=== PATIENT | female | born 1950 | race Caucasian/White ===

== ENCOUNTER 2023-02-04 09:40 | Emergency (ER) | payer MEDICARE, SELFPAY ==
[2023-02-04 09:43] VITALS: BP 155/83; PULSE 92; RESP 18; TEMP 36.9; O2SAT 98; BMI 23.0
[2023-02-04 09:50] VITALS: O2SAT 98
--- NOTE | 2023-02-04 09:50 | XR_ITS ---
The [address] [address] Patient Name: CHACHO TOBIAS MRN: [id number] date: 1950 Sex: F Assigned Patient Location: ER Current Patient Location: ED.MAIN Accession/Order Number: [id number] Exam Date: 02/04/2023 09:55 Report Date: 02/04/2023 11:00 At the request of: VIRGINIA JARA Procedure: XR foot LT min 3V EXAM: XR foot LT min 3V CLINICAL HISTORY: Pain post injury. COMPARISON: 03/12/2019 TECHNIQUE: X-ray FINDINGS: There is a minimal nondisplaced cortical irregularity along the distal third metatarsal shaft. The is remote hardware is in place, which appears stable. There are degenerative changes. There is a small calcaneal heel spur. The remainder of the osseous structures and joint spaces appear intact. XR/XR foot LT min 3V IMPRESSION: Possible nondisplaced hairline fracture of the distal third metatarsal shaft. Correlation with the site of point tenderness, conservative treatment and appropriate follow-up are recommended. Electronically authenticated by: CYN ALMEIDA Date: 02/04/2023 11:00
--- NOTE | 2023-02-04 09:50 | ED_ITS ---
HPI - Extremity Injury (Lower) General Chief Complaint: Extremity Injury, Lower Stated Complaint: LOWER EXTREMITY INJURY L FOOT Time Seen by Provider: 02/04/23 09:50 Mode of arrival: walk-in Limitations: no limitations History of Present Illness HPI Narrative: Patient is coming to the ER with a left foot pain that started after she dropped at dinner tray on her foot yesterday this happened to the left foot and since then the patient did apply some ice initially, she does have some swelling there that got better and she also mentioned that she does not have any significant pain when she is walking. Related Data Allergies Allergy/AdvReac Type Severity Reaction Status Date / Time No Known Drug Allergies Allergy Verified 02/04/23 09:48 Review of Systems ROS Status of ROS 10 or more systems reviewed and unremark able except as noted in history and below [facility] Social History Smoking status: Never smoker Exam Narrative Exam Narrative: Nurses notes and vital signs reviewed and patient is not hypoxic. General: Well-appearing and in no apparent distress. Skin: Warm, dry, no pallor noted. No rash. Head: Normocephalic, atraumatic. Neck: Supple, non-tender. Eye: Pupils are equal, round and EOMI. No scleral icterus. Ears, Nose, Mouth, and Throat: TM are clear, no nasal mucosal hypertrophy. Oral mucosa is moist, no posterior oropharynx erythema, uvula is mid-line Cardiovascular: Regular Rate and Rhythm without murmur, gallop or rub. Respiratory: No accessory muscle use or respiratory distress. Lungs are clear to auscultation, no wheezing, rales or rhonchi Chest Wall: no tenderness Back: No midline thoracic or lumbar vertebral tenderness. No CVA tenderness Musculoskeletal: swelling and contusion to the lateral aspect of the foot mostly towards the third fourth and the fifth metatarsal no open wounds mild tenderness on palpation, no vascular injury detected GI: Abdomen is soft, non-distended. Normal bowel sounds. No masses appreciated. No tenderness to palpation. No rebound, guarding, or rigidity noted. Neurological: A&O x4. No cranial nerve dysfunction observed. No truncal ataxia. Moves all extremities. Sensation intact. Psychiatric: Cooperative and interactive. Normal mood and affect. Constitutional Vital Signs, click to edit/add: Last Vital Signs Temp 98.5 F 02/04/23 09:43 Pulse 92 H 02/04/23 09:43 Resp 18 02/04/23 09:43 BP 155/83 H 02/04/23 09:43 Pulse Ox 98 02/04/23 09:43 O2 Del Method Room Air 02/04/23 09:43 Course Vital Signs Vital signs: Vital Signs Temperature 98.5 F 02/04/23 09:43 Pulse Rate 92 H 02/04/23 09:43 Respiratory Rate 18 02/04/23 09:43 Blood Pressure 155/83 H 02/04/23 09:43 Pulse Oximetry 98 02/04/23 09:43 Oxygen Delivery Method Room Air 02/04/23 09:43 Temperature 98.5 F 02/04/23 09:43 Pulse Rate 92 H 02/04/23 09:43 Respiratory Rate 18 02/04/23 09:43 Blood Pressure 155/83 H 02/04/23 09:43 Pulse Oximetry 98 02/04/23 09:43 Oxygen Delivery Method Room Air 02/04/23 09:43 MDM - Extremity Injury (Lower) MDM Narrative Medical decision making narrative: The patient presented with contusion of the left foot X-ray of the foot showed no acute pathology The patient was discharged home with supportive care of Keven wrap as well as Tylenol The patient is to follow up with primary care physician in next 2-3 days or to return to the emergency department should any of the signs or symptoms worsen or new symptoms develop. The patient agrees with the following Diagnosis and Treatment plan and the patient will be discharged home. Discharge Plan Discharge Chief Complaint: Extremity Injury, Lower Clinical Impression: Contusion of foot Qualifiers: Encounter type: initial encounter Laterality: left Qualified Code(s): S90.32XA - Contusion of left foot, initial encounter Metatarsal fracture Qualifiers: Encounter type: initial encounter Metatarsal bone: third Fracture type: closed Fracture alignment: nondisplaced Laterality: left Qualified Code(s): S92.335A - Nondisplaced fracture of third metatarsal bone, left foot, initial encounter for closed fracture Patient Disposition: Home, Self-Care Time of Disposition Decision: 11:17 Condition: Good Instructions: Foot Fracture in Adults (ED), Foot Contusion (ED) Stand Alone Forms: Portal Instructions Referrals: ELMA DANIELSON [Primary Care Provider] - 1 week Zach Corral DPM [Physician] - 1 week Discharge Date/Time: 02/04/23 11:32
== END 2023-02-04 11:32 | disposition home or self-care (01) ==
PROVIDERS: Emergency Provider Emergency Medicine; PCP Family Medicine
DX: S90.32XA Contusion of left foot, initial encounter (principal); W20.8XXA Other cause of strike by thrown, projected or falling object, initial encounter
CPT/HCPCS: 73630; 99283

== ENCOUNTER 2023-12-16 07:59 | Emergency (ER) | payer MEDICARE, SELFPAY ==
[2023-12-16 08:04] VITALS: BP 160/90; PULSE 96; TEMP 37.1; O2SAT 97; BMI 22.0
--- OUTSIDE RECORDS SUMMARY | 2023-12-16 08:07 | XMS_ITS | CCD ---
Author Organization [facility] Care Team Providers Care Customer Service Consultant Name Role Phone Charlene Cruz Unavailable FRANCESCO PIERRE Admitting Unavailable HIGHLANDER, FRANCESCO Attending Unavailable SEAN CALVILLO V Consulting Unavailable HIGHLANDER, FRANCESCO Consulting Unavailable MARYLOUANDER, FRANCESCO Admitting Unavailable HIGHLANDER, FRANCESCO Attending Unavailable CHARLENE CRUZ Primary Care Unavailable GABBY, FRANCESCO Admitting Unavailable GABBY, FRANCESCO Attending Unavailable ANTHONY CHARLENE A Primary Care Unavailable Anthony Charlene A Primary Care Provider Lesa Mack Unavailable DR CHARLENE CRUZ A Primary Care Unavailable ALEENA, DR GUADARRAMA Admitting Unavailable HAY, DR GUADARRAMA Attending Unavailable ZIEBSAM, DR JEREMIAH Connolly Consulting Unavailable RAS CABEZAS Consulting Unavailable Darrius Moreland Unavailable MD Charlene Cruz Primary Care Provider DO Darrius Moreland Attending Provider MD Charlene Cruz Primary Care Provider DO Darrius Moreland Attending Provider Sharmaine Alfonso Unavailable Romi Toth Unavailable CHARLENE CRUZ Referring Unavailable CHARLENE CRUZ Attending Unavailable CHARLENE CRUZ Primary Care Unavailable Charlene Cruz MD Primary Care Provider BRITT HINSON Attending Unavailable ANTHONY, CHARLENE A Primary Care Unavailable CRUZ, CHARLENE A Attending Unavailable ANTHONY, CHARLENE A Referring Unavailable CRUZ, CHARLENE A Primary Care Unavailable JESUS SALAS Attending Unavailabl e CHARLENE CRUZ A Referring Unavailable CRUZ, CHARLENE A Primary Care Unavailable ASSENMACJESUS EPSTEIN Referring Unavailabl e CRUZ, CHARLENE A Primary Care Unavailable TIFFANIEENJESUS RASHEED Referring Unavailabl e CRUZ, CHARLENE A Primary Care Unavailable JESUS SALAS Admitting Unavailabl e ASSENMACHERJESUS Attending Unavailabl e ASSENMACHERJESUS Referring Unavailabl e CRUZ, CHARLENE A Primary Care Unavailable SOHAIL KAISER Attending Unavailable ANTHONY, CHARLENE A Primary Care Unavailable ASSENMACJESUS EPSTEIN Attending Unavailabl e ASSENMACHERJESUS Referring Unavailabl e CRUZ, CHARLENE A Primary Care Unavailable ASSENMAC, JESUS Perrin Attending Unavailabl e ANTHONY, CHARLENE A Referring Unavailable ANTHONY, CHARLENE A Primary Care Unavailable ASSENMAC, JESUS Perrin Referring Unavailabl e CRUZ, CHARLENE A Primary Care Unavailable ASSENJESUS RASHEED Attending Unavailabl e ANTHONY, CHARLENE A Referring Unavailable CRUZ, CHARLENE A Primary Care Unavailable JOEL MIDDLETON Attending Unavailable CHARLENE CRUZ Referring Unavailable SHAI CRUZHER A Primary Care Unavailable MD Charlene Cruz Primary Care Provider [phone] BEBO Curran Attending Provider Charlene Cruz Primary Care Unavailable Lazara Curran Attending Unavailable Lazara Curran Admitting Unavailable Medications Current Medications Medication Drug Class(es) Dates Sig (Normalized) Sig (Original) acetaminophen 325 mg / oxyCODONE hydrochloride 5 mg oral tablet (4 sources) Opioid Agonist take 1 tablet by mouth every six hours oxyCODONE-Acetami nophen 5-325 MG 1 tablet as needed Orally every 6 hrs PRN Active acyclovir 400 mg oral tablet (2 sources) Herpesvirus Nucleoside Analog DNA Polymerase Inhibitor, Herpes Simplex Virus Nucleoside Analog DNA Polymerase Inhibitor, Herpes Zoster Virus Nucleoside Analog DNA Polymerase Inhibitor Start: 11-30-2023 Acyclovir Active MG PO November 30, 2023 12:00am azithromycin 250 mg oral tablet (1 source) Macrolide Antimicrobial Start: 03-09-2021 Zithromax 250 MG 2 tablet on the first day, then 1 tablet daily for 4 days Orally Once a day for 5 day(s) Mar, Active benzonatate 200 mg oral capsule (2 sources) Non-narcotic Antitussive Start: 11-30-2023 take 200 mg by mouth three times daily Benzonatate Active 200 MG PO Three times daily November 30, 2023 12:00am doxycycline hyclate 100 mg oral capsule (13 sources) Tetracycline-class Drug Start: 11-30-2023 take 100 mg by mouth twice daily Doxycycline Hyclate Active 100 MG PO Twice daily 14 November 30, 2023 12:00am Start: 01-27-2020 take 1 capsule by [facility] every twelve hours Doxycycline Monohydrate 100 MG 1 capsule Orally every 12 hrs for 7 days Jan, Not-Taking/PRN fluticasone propionate 0.05 mg/actuat metered dose nasal spray (13 sources) Corticosteroid Start: 01-16-2023 take 2 spray(s) nasal route once daily Fluticasone Propionate 50 MCG/ACT 2 sprays Nasally Once a day for 14 day(s) Jan, Active Start: 01-27-2020 take 1 spray(s) nasa l route once daily as needed Fluticasone Propionate 50 MCG/ACT 1 spray in each nostril Nasally Once a day for 10 days Jan, Not-Taking/PRN Start: 01-27-2020 take 1 spray(s) nasa l route once daily Fluticasone Propionate 50 MCG/ACT 1 spray in each nostril Nasally Once a day for 10 days Jan, Not-Taking 12 hr guaiFENesin 600 mg extended release oral tablet (2 sources) Start: 11-30-2023 take 600 mg by mouth twice daily Guaifenesin Active 600 MG PO Twice daily November 30, 2023 12:00am Ibuprofen (4 sources) Nonsteroidal Anti-inflammatory Drug Advil Active methylPREDNISolone 4 mg oral tablet (20 sources) Corticosteroid Start: 11-30-2023 take 1 tablet by mouth once Methylprednisolone (Medrol (Que)) 4 mg tablets,dose pack Active 0 PO per package directions November 30, 2023 12:00am PO PER PKG DIR for 6 days Start: 12-11-2022 Medrol 4 MG as directed Orally As Directed for 6 days Jan, Active Start: 04-20-2022 Medrol 4 MG as directed Orally Apr, Active Start: 01-27-2020 methylPREDNISo lone 4 MG take half with breakfast, half with dinner Orally as directed for 6 Sep, Not-Taking/PRN Naproxen (11 sources) Nonsteroidal Anti-inflammatory Drug Start: 11-30-2023 Naproxen Active MG PO November 30, 2023 12:00am Naproxen Active predniSONE 20 mg oral tablet (1 source) Start: 03-09-2021 take 1 tablet by mouth every twelve hours predniSONE 20 MG 1 tablet Orally bid for 5 day(s) Mar, Active Completed/Discontinued Medications Medication Drug Class(es) Dates Sig (Normalized) Sig (Original) amoxicillin 500 mg oral capsule (3 sources) Penicillin-class Antibacterial Start: 12-11-2022 take 1 capsule by mouth every twelve hours Amoxicillin 500 MG 1 capsule Orally every 12 hrs for 10 days Dec, Not-Taking/PRN cephalexin 500 mg oral capsule (4 sources) Cephalosporin Antibacterial Start: 10-25-2022 take 1 capsule by mouth every eight hours Cephalexin 500 MG 1 capsule Orally tid for 10 day(s) Oct, Not-Taking/PRN Problems Active Problems Problem Classification Problem Date Documented Date Episodic/Chronic Acute and chronic tonsillitis (2 sources) Amygdalolith; Translations: [Other chronic diseases of tonsils and adenoids] Onset: 04-03-2019 04-03-2019 Chronic Fracture of lower limb (4 sources) Displaced fracture of fifth metatarsal bone, right foot, initial encounter for closed fracture; Translations: [Displaced fracture of fifth metatarsal bone, right foot, subsequent encounter for fracture with routine healing] Episodic Fracture of lower limb (4 sources) Other fracture of upper end of left tibia, initial encounter for closed fracture; Translations: [Other fracture of upper end of left tibia, subsequent encounter for closed fracture with routine healing] Episodic Osteoarthritis (4 sources) Primary osteoarthritis, left ankle and foot; Translations: [Primary osteoarthritis, right ankle and foot] Onset: 12-06-2018 04-09-2023 Chronic Osteoporosis (1 source) Age-related osteoporosis without current pathological fracture; Translations: [Age-related osteoporosis without current pathological fracture] Onset: 05-31-2023 Chronic Other connective tissue disease (4 sources) Pain in right foot; Translations: [PAIN IN RIGHT FOOT] Onset: 12-02-2018 Episodic Other connective tissue disease (2 sources) Pain in left foot; Translations: [PAIN IN LEFT FOOT] Onset: 12-06-2018 Episodic Other connective tissue disease (2 sources) Posterior tibial tendinitis, right leg Episodic Other connective tissue disease (1 source) Peroneal tendinitis, left leg Episodic Other ear and sense organ disorders (1 source) Otalgia, left ear; Translations: [Otalgia, left ear] Onset: 09-17-2023 Episodic Other lower respiratory disease (2 sources) Cough; Translations: [Cough] 12-07-2023 Episodic Other lower respiratory disease (1 source) Other specified respiratory disorders; Translations: [Other diseases of respiratory system, not elsewhere classified] 11-30-2023 Episodic Other non-traumatic joint disorders (2 sources) Temporomandibular joint disorder; Translations: [Arthropathy of both temporomandibular joints] Onset: 09-20-2020 09-20-2020 Chronic Other non-traumatic joint disorders (1 source) Arthropathy; 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] Onset: 09-20-2020 Chronic Other non-traumatic joint disorders (1 source) Pain in right ankle and joints of right foot; Translations: [PAIN IN RIGHT ANKLE] Onset: 12-06-2018 Episodic Other non-traumatic joint disorders (1 source) Pain in left ankle and joints of left foot; Translations: [PAIN IN LEFT ANKLE] Onset: 12-06-2018 Episodic Other non-traumatic joint disorders (1 source) Hip pain; Translations: [Pain in left hip] 04-09-2023 Episodic Other upper respiratory infections (3 sources) Acute pharyngitis, unspecified; Translations: [Acute upper respiratory infection, unspecified] Onset: 03-09-2021 Resolved: 03-09-2021 Episodic Otitis media and related conditions (2 sources) Acute serous otitis media, left ear; Translations: [Otitis media, unspecified, left ear] Episodic Skin and subcutaneous tissue infections (1 source) Cellulitis of left finger Episodic Superficial injury; contusion (1 source) Contusion of left foot, initial encounter Episodic Unclassified (3 sources) Breast neoplasm screening status; Translations: [Encounter for screening mammogram for malignant neoplasm of breast] Onset: 12-23-2022 Episodic Unclassified (1 source) Patient encounter status; Translations: [Visit for screening mammogram] Unclassified (1 source) Post-op Onset: 07-23-2023 Unclassified (1 source) Primary osteoarthritis of left hip [M16.12] Onset: 07-10-2023 Unclassified (1 source) New Patient Onset: 04-09-2023 Unclassified (1 source) Cerumen Impaction Onset: 09-17-2023 Unclassified (1 source) Cough, unspecified; Translations: [Cough, unspecified] Onset: 11-30-2023 Past or Other Problems Problem Classification Problem Date Documented Da te Episodic/Chronic Immunizations and screening for infectious disease (1 source) Contact with and (suspected) exposure to other viral communicable diseases Onset: 03-09-2021 Resolved: 03-09-2021 Episodic Mood disorders (2 sources) Mood disorders Onset: 09-20-2020 09-20-2020 Other connective tissue disease (1 source) Foot pain Onset: 02-03-2023 Episodic Other ear and sense organ disorders (2 sources) Hearing loss of left ear; Translations: [Impacted cerumen, left ear] Onset: 12-17-2018 12-17-2018 Episodic Other ear and sense organ disorders (2 sources) Impacted cerumen; Translations: [Impacted cerumen, unspecified ear] Onset: 04-03-2019 04-03-2019 Episodic Other ear and sense organ disorders (1 source) Impacted cerumen, bilateral; Translations: [Impacted cerumen, bilateral] Onset: 04-03-2019 Episodic Other non-traumatic joint disorders (1 source) Pain in left hip; Translations: [Pain in left hip] Onset: 04-09-2023 Episodic Unclassified (1 source) Suspected COVID-19 virus infection Z20.822 Viral infection (1 source) COVID-19 Onset: 03-09-2021 Resolved: 03-09-2021 Results Test Name Value Interpretation Reference Range Facility XR chest 2V*on 11-30-2023 XR chest 2V* [facility] Main [address] [address] XRay Report Signed Patient: Chacho Bonner MR#: [id number] 38 : 1950 Acct:[id number] Age/Sex: 73 / F ADM Date: 11/30/23 Loc: XDUCLY Room: Type: [facility] Attending Dr: Lazara Curran APRN Copies to: Lazara Curran APRN Ordering Provider: Lazara Curran APRN Date of Service: 11/30/23 XR/XR chest 2V*: R05.9 - Cough, unspecified XR chest 2V* 11/30/2023 2:09 PM SIGNS AND SYMPTOMS: Cough, chest congestion PROTOCOL: Frontal and lateral radiographs of the chest COMPARISON: None FINDINGS: The trachea is midline. The heart and mediastinal structures are within normal limits. The lung parenchyma is clear. The bony thorax is intact. XR/XR chest 2V* IMPRESSION: No acute cardiopulmonary pathology. Impression dictated by: Rob Cardoso M.D.11/30/2023 2:30 PM Dictation Location: [place] [address] Transcribed By: [facility] 11/30/23 1430 Dictated By: Rob Cardoso II, MD 11/30/23 1429 Signed By: 11/30/23 1430 Normal [facility] COMPLETE BLOOD COUNTon 06-25 Erythrocyte distribution width (RBC) [Ratio] 14.0 % Normal 11.5-15.0 [facility] Comment on above: Performed By: #### CBC #### [facility] ([id number]) [facility] [place] [address] Hematocrit (Bld) [Volume fraction] 39.6 % Normal 35-47 [facility] Comment on above: Performed By: #### CBC #### [facility] ([id number]) [address] [place] [address] Hemoglobin (Bld) [Mass/Vol] 13.1 g/dL Normal 11.7-15.5 [facility] Comment on above: Performed By: #### CBC #### [facility] ([id number]) [address] [place] [address] MCH (RBC) [Entitic mass] 30.3 pg Normal 27-34 [facility] Comment on above: Performed By: #### CBC #### [facility] ([id number]) [address] [place] [address] MCHC (RBC) [Mass/Vol] 33.0 g/dL Normal 32-36 [facility] Comment on above: Performed By: #### CBC #### [facility] ([id number]) [address] [place] [address] MCV (RBC) [Entitic vol] 92 fL Normal 80-100 [facility] Comment on above: Performed By: #### CBC #### [facility] ([id number]) [address] [place] [address] Platelet mean volume (Bld) [Entitic vol] 7.9 fL Normal 7-12 [facility] Comment on above: Performed By: #### CBC #### [facility] ([id number]) [address] [place] [address] Platelets (Bld) [#/Vol] 249 10*3/uL Normal 150-450 [facility] Comment on above: Performed By: #### CBC #### [facility] ([id number]) [facility] [place] [address] RBC COUNT 4.31 X10E12/L Normal 3.80-5.20 [facility] Comment on above: Performed By: #### CBC #### [facility] ([id number]) [employer] [place] [address] WBC (Bld) [#/Vol] 7.6 10*3/uL Normal 4.0-11.0 [facility] Comment on above: Performed By: #### CBC #### [facility] ([id number]) [employer] [place] [address] DEXA SCAN CENTRAL SKELETALon 05-31-2023 DEXA SCAN CENTRAL SKELETAL DEXA SCAN CENTRAL SKELETAL Comparison October 01, 2019 History:Postmenopausal, screening for osteoporosis, estrogen deficient and at clinical risk for osteoporosis Procedure: Bone density scan was performed in the regions indicated in the accompanying documents. Bone mineral density values for each site expressed in grams per square centimeter and shown on accompanying graphs and tables. These values are compared to the World Health Organization standards that state that bone mineral density values at or below -2.5 standard deviations (T score -2.5) standard deviations from a young adult ethnicity-matched population are indicative of osteoporosis, and bone mineral density values at or below -1.0 standard deviations (T score -1.0) from a young adult ethnicity-matched population are indicative of osteopenia. The comparison of this patient's values to the world health organization standards is given in the impression. When possible, this study has been compared to any prior DEXA study. Impression: 1. Osteoporosis Bilateral hips and lumbar spine Findings are worsening with left femoral neck T score of -3.1 and major osteoporotic fracture risk for 1.5% and hips fracture risk and 17.6% The current national osteoporosis Foundation guide recommend treating patients with FRAX 10 year risk scores of greater than or equal to 3% for hip fracture, or greater than or equal to 20% or major osteoporotic fracture to reduce their fracture risk. Recommendations for treatment: In any patient found to be at risk for fracture may be helped by medical treatment. Also, exercise and a diet rich in calcium and vitamin D has been shown to help in the prevention of bone loss and should be considered as an adjunct to treatment. In postmenopausal patients, this might also include medical therapy. Consistent with [employer] Medicare guidelines, patients at risk may be eligible for vertebral fracture assessment exam. Recommendations for followup: Patients diagnosed as at risk for fracture should have regular bone mineral density tests. For patient's eligible for Medicare, routine testing is allowed once every 2 years. The testing frequency to be increased to one year for patients with rapidly progressive disease, those whom are receiving or discontinuing medical therapy to restore bone mass, or have additional risk factors. Finalized by Jung Ceballos MD on 05/31/2023 5:23 PM Normal [facility] XR Hip - left Single viewon 04-09-2023 AP left hip x-ray obtained in the office today for digital templating demonstrates end-stage primary osteoarthritis with [id number] change in the femoral acetabular joint significant cystic change in the subchondral bone. Left hip end-stage primary osteoarthritis MANUALLY TRANSCRIBED RESULTS Radiology Study observation (narrative) [employer] [facility] XR Hip - left Single viewOrd ered By: Jesus Salas on 04-09-2023 [facility] Work Phone: COVID + FLU Quick Testingon 01-16-2023 SARS-CoV-2 (COVID-19) RNA LUZ MARINA+probe Ql (Unsp spec) Negative [employer] Other COVID + FLU Quick Testing Negative [employer] Other MM SCREENING AMAURY BILATERALo n 12-23-2022 MM SCREENING AMAURY BILATERAL EXAMINATION: BILATERAL DIGITAL SCREENING MAMMOGRAM WITH TOMOSYNTHESIS INDICATION: Annual screening exam. Family history of breast cancer in her mother. COMPARISON: 2021, 2020, 2019, 2018 TECHNIQUE: Standard mammographic views, 2D and 3D. Computer-aided detection was utilized in the interpretation of this exam. FINDINGS: Scattered fibroglandular breast tissue. Stable benign focal asymmetry in the outer posterior left breast. A linear scar marker was placed over the lower inner left breast to demarcate the site of prior benign excisional biopsy. No suspicious masses, calcifications, or other abnormalities in either breast. No significant interval change. IMPRESSION: No mammographic evidence of malignancy. BIRADS: BIRADS - CATEGORY 2 Benign, no evidence of malignancy. Normal interval follow-up is recommended in 12 months. OVERALL ASSESSMENT - BENIGN A letter of notification will be sent to the patient regarding the results. [facility], along with the National [employer] Cancer Network, the [employer], and [facility], recommend annual screening mammograms for women age 40 and older. Workstation ID: [id number] Dictated by: CHRISTIE HANKS on SunDec 25, 2022 4:14:41 PM EST Transcribed by: CHRISTIE HANKS on SunDec 25, 2022 4:14:41 PM EST Finalized by: CHRISTIE HANKS on SunDec 25, 2022 4:14:41 PM EST Normal [facility] XR foot RT min 3V*on 023 XR foot RT min 3V* [facility] [employer] Other XR foot RT min 3V* [facility] [place] [employer] Other XR foot RT min 3V* [address] [place] [address] [employer] Other XR foot RT min 3V* [place] [address] [employer] Other XR foot RT min 3V* XRay Report [employer] Other XR foot RT min 3V* Signed [employer] Other XR foot RT min 3V* Patient: Chacho Bonner MR#: [id number] [employer] Other XR foot RT min 3V* 38 [employer] Other XR foot RT min 3V* : 1950 Acct:[id number] [employer] Other XR foot RT min 3V* Age/Sex: 71 / F ADM Date: 04/05/22 [employer] Other XR foot RT min 3V* Loc: [facility] Room: Type: [facility] [employer] Other XR foot RT min 3V* Attending Dr: Darrius Moreland DO [employer] Other XR foot RT min 3V* Copies to: Darrius Moreland DO [employer] Other XR foot RT min 3V* Ordering Provider: Darrius Moreland DO [employer] Other XR foot RT min 3V* Date of Service: 04/05/22 [employer] Other XR foot RT min 3V* XR/XR knee LT 2V: Other closed fracture of proximal end of left tibia [employer] Other XR foot RT min 3V* with [employer] Other XR foot RT min 3V* ([id number]) XR/XR foot RT min 3V*: Other closed fracture of proximal end of left tibia with [employer] Other XR foot RT min 3V* LEFT KNEE - 2 views right foot 3 views [employer] Other XR foot RT min 3V* CLINICAL HISTORY: Follow-up left proximal tibial fracture. Follow-up right fifth metatarsal fracture [employer] Other XR foot RT min 3V* COMPARISON: Left knee and right foot 03/08/2022 [employer] Other XR foot RT min 3V* FINDINGS: [employer] Other XR foot RT min 3V* Left knee: [employer] Other XR foot RT min 3V* Interval sclerosis and callus formation involving the proximal fibular fracture consistent with [employer] Other XR foot RT min 3V* healing response. No change in alignment. Degenerative changes involving the left knee joint. No [employer] Other XR foot RT min 3V* knee joint effusion. [employer] Other XR foot RT min 3V* Right foot: Fifth metatarsal fracture grossly unchanged alignment and healing compared to the prior [employer] Other XR foot RT min 3V* study. No additional fractures are seen. Degenerative changes involving the first MTP joint without [employer] Other XR foot RT min 3V* bony erosion. Plantar spurring. [employer] Other XR foot RT min 3V* XR/XR knee LT 2V [employer] Other XR foot RT min 3V* IMPRESSION: [employer] Other XR foot RT min 3V* HEALING PROXIMAL FIBULAR FRACTURE. [employer] Other XR foot RT min 3V* NO SIGNIFICANT CHANGE IN RIGHT FIFTH METATARSAL FRACTURE FINDINGS. [employer] Other XR foot RT min 3V* Impression dictated by: Jesus Fu Jr. DMartha04/05/2022 4:51 PM [employer] Other XR foot RT min 3V* Dictation Location: [place] [address] [employer] Other XR foot RT min 3V* Transcribed By: PARVEEN 04/05/22 8280 [employer] Other XR foot RT min 3V* Dictated By: Jesus Fu Jr, DO 04/05/22 1645 [employer] Other XR foot RT min 3V* Signed By: [employer] Other XR foot RT min 3V* 04/05/22 1651 [employer] Other XR foot RT min 3V*on 023 XR foot RT min 3V* [facility] [employer] Other XR foot RT min 3V* [facility] [employer] Other XR foot RT min 3V* [address] [place] [address] [employer] Other XR foot RT min 3V* [place] [address] [employer] Other XR foot RT min 3V* XRay Report [employer] Other XR foot RT min 3V* Signed [employer] Other XR foot RT min 3V* Patient: Chacho Bonner MR#: [id number] [employer] Other XR foot RT min 3V* : 1950 Acct:[id number] [employer] Other XR foot RT min 3V* Age/Sex: 71 / F ADM Date: 03/08/22 [employer] Other XR foot RT min 3V* Loc: [facility] Room: Type: [facility] [employer] Other XR foot RT min 3V* Attending Dr: Darrius Moreland DO [employer] Other XR foot RT min 3V* Copies to: Darrius Moreland DO [employer] Other XR foot RT min 3V* Ordering Provider: Darrius Moreland DO [employer] Other XR foot RT min 3V* Date of Service: 03/08/22 [employer] Other XR foot RT min 3V* XR/XR foot RT min 3V*: Other closed fracture of proximal end of left [employer] Other XR foot RT min 3V* tibia with rou [employer] Other XR foot RT min 3V* 3 viewsRIGHT foot plain film [employer] Other XR foot RT min 3V* COMPARISON:02/07/22 [employer] Other XR foot RT min 3V* HISTORY:Status post RIGHT 5th metatarsal fracture [employer] Other XR foot RT min 3V* Continued healing of the 5th metatarsal fracture identified. Bony alignment unchanged. [employer] Other XR foot RT min 3V* XR/XR foot RT min 3V* [employer] Other XR foot RT min 3V* IMPRESSION:Healing fracture [employer] Other XR foot RT min 3V* Impression dictated by: Stanley Borja M.D.03/08/2022 1:52 PM [employer] Other XR foot RT min 3V* Dictation Location: [place] [address] [employer] Other XR foot RT min 3V* Transcribed By: PARVEEN 03/08/22 [facility] [employer] Other XR foot RT min 3V* Dictated By: Stanley Borja DO 03/08/22 [facility] [employer] Other XR foot RT min 3V* Signed By: [employer] Other XR foot RT min 3V* 03/08/22 [facility] [employer] Other XR knee LT 2Von 03-08-2022 XR knee LT 2V XR/XR knee LT 2V: Other closed fracture of proximal end of left tibia [employer] Other XR knee LT 2V with rou [employer] Other XR knee LT 2V [address] ain film [employer] Other XR knee LT 2V HISTORY:Status post LEFT proximal fibular fracture [employer] Other XR knee LT 2V Continued healing of the proximal fibular fracture identified. Bony alignment unchanged.No joint [employer] Other XR knee LT 2V effusion identified. [employer] Other XR knee LT 2V XR/XR knee LT 2V [employer] Other XR knee LT 2V IMPRESSION:Healing fracture. [employer] Other XR knee LT 2V Impression dictated by: Stanley Borja M.D.03/08/2022 1:54 PM [employer] Other XR knee LT 2V Transcribed By: PWS 03/08/22 [facility] [employer] Other XR knee LT 2V Dictated By: Stanley Borja DO 03/08/22 [facility] [employer] Other XR knee LT 2V 03/08/22 [facility] [employer] [facility] [employer] Other XR ANKLE MARVIN MIN 3 VIEWSon 1 XR ANKLE MARVIN MIN 3 VIEWS Patient: CHACHO BONNER Exam Date: 12/02/2018 : 1950 Gender:F Ordering : DR. FRANCESCO PIERRE D.P.MBrenda Admission #: [id number] Family : Order #: [id number] CLICK HERE TO VIEW EXAM RADIOLOGY REPORT PROCEDURE: RADIOGRAPH ANKLE BILATERAL MIN 3 VIEWS COMPARISON: XR ANKLE LT MIN 3 V, 09/28/2017. INDICATIONS: Chronic bilateral ankle pain, subsequent for left, initial for right RIGHT FINDINGS: BONES: No acute fracture or dislocation. Flattening of the plantar arch. Enthesopathic spurring of the calcaneus SOFT TISSUES: Negative. No visible soft tissue swelling. EFFUSION: None visible. OTHER: Negative. LEFT FINDINGS: BONES: No acute fracture or dislocation. Flattening of the plantar arch. Enthesopathic spurring of the calcaneus SOFT TISSUES: Negative. No visible soft tissue swelling EFFUSION: None visible. OTHER: Negative. RIGHT CONCLUSION: Mild osteoarthritis LEFT CONCLUSION: Mild osteoarthritis Dictated by: Sean Calvillo M.D. on 12/02/2018 at 15:03 Approved by: Sean Calvillo M.D. on 12/02/2018 at 15:05 [facility] XR FOOT MARVIN MIN 3 VIEWSon Bilirubin [Mass/Vol] Patient: CHACHO BONNER Exam Date: 12/02/2018 : 1950 Gender:F Ordering : DR. FRANCESCO PIERRE D.P.M. Admission #: [id number] Family : Order #: [id number] CLICK HERE TO VIEW EXAM RADIOLOGY REPORT PROCEDURE: RADIOGRAPH FOOT BILATERAL MIN 3 VIEWS COMPARISON: XR FOOT LT MIN 3 VIEWS, 09/28/2017. INDICATIONS: Chronic bilateral foot pain, subsequent imaging for left, initial for right RIGHT FINDINGS: BONES: No acute fracture or dislocation. Cwow-qj-xnxa articulation of the 1st metatarsophalangeal joint. Enthesopathic spurring of the calcaneus SOFT TISSUES: Negative. No visible soft tissue swelling. OTHER: Negative. LEFT FINDINGS: BONES: No acute fracture or dislocation. Eqzn-bf-kwop articulation with remodeling 1st metatarsophalangeal joint. Enthesopathic spurring of the calcaneus. Mixed lytic and sclerotic changes of the midfoot likely related to degenerative change SOFT TISSUES: Negative. No visible soft tissue swelling OTHER: Negative. RIGHT CONCLUSION: Osteoarthritis most significant at the 1st metatarsophalangeal joint LEFT CONCLUSION: Osteoarthritis most significant at the 1st metatarsophalangeal joint and midfoot Dictated by: Sean Calvillo M.D. on 12/02/2018 at 15:05 Approved by: Sean Calvillo M.D. on 12/02/2018 at 15:09 Normal [facility] CT Pelvis w/o Contraston CT Pelvis WO contrast EXAMINATION TYPE: CT Pelvis w/o Contrast DATE OF EXAM : 11/03/2018 12:02 PM HISTORY: Trauma, status post a fall. The patient is now unable to ambulate. COMPARISON: NONE FINDINGS: The examination shows no evidence of fracture, dislocation, joint effusion or hemorrhage in the region of the right hip. The bony pelvis is intact. The sacral arches and sacroiliac joints are intact. There is advanced degenerative joint disease in the left hip with multiple subchondral cysts and subchondral eburnation. IMPRESSION: No evidence of acute abnormality in the right hip or pelvis. [facility] thanks you for the opportunity to care for your patient. Workstation ID: [id number] FINAL REPORT Dictated By: Jefferson Thompson MD 11/03/2018 12:16 Assigned Physician: Jefferson Thompson MD Reviewed and Electronically Signed By: Jefferson Thompson MD 11/03/2018 12:19 Transcribed by: HUBERT 11/03/2018 12:16 Technologist: KARL Camarena [facility] ED [facility] 11-03-2018 [place] [address] Emergency Department Discharge Instructions CHACHO BONNER, Please provide this information to your Primary Care/Specialist Name: LEXPATRICE GARYANNE Current Date : 11/03/2018 13:14:37 : 1950 Primary Care Physician: PB Javier Unknown Diagnosis : Follow-Up Instructions: Felisha BONNER been given these follow-up instructions: FOLLOW-UP APPOINTMENTS: Provider: Specialty: Address: Date: PCP Unknown Physician Family Practice Follow-up as needed Provider: Specialty: Address: Date: Return to Emergency Department 1 to 2 days Comment: Follow-up as needed IF YOU WORSEN COME BACK Provider: Specialty: Address: Date: Your orthopedist 3 to 4 days Comment: Call for an Appointment Laboratory Orders: None Ordered Radiology Orders: Name: Status: XR Hip 2-[address] Pelvis w/o Contrast Completed Diagnostic Tests: None Ordered Procedure(s) and Patient Education(s) : Work Release 3 days no restrictions - CO-GC (Custom); Hip Pain EMERGENCY SERVICES MEDICATION LIST Lista de Medicaciones de los Servicios de Emergencia Name CHACHO BONNER MRN [facility]-[id number] [facility]# [id number] PLEASE READ THE FOLLOWING REGARDING YOUR MEDICATIONS Based on the information available during your visit we have given you the medication instructions below. Continue taking medications you took prior to your visit unless you have been told to change. Please share this information with your own doctor. Carry a list of your medications with you in case of an emergency. Update it when medications are stopped, doses are changed, or new medications (including iruv-sxb-larzyun products) are added. If you have any questions, check with your doctor. Por la informaci??n disponible chapis thompson visita, las instrucciones de medicaci??n aparecen debajo. Favor de continuar tomando las medicaciones Ud. satya?? antes de thompson visita por lo menos que hay cambios. Favor de compartir esta informaci??n con thompson medico. Lleva alexia lista de medicaciones consigo por mauri de emergenc??a. Actualiza la lista cuando Ud. jose antonio de jaylene las medicaciones, si cambian las dosis, o si hay nuevas medicaciones a??adidas (incluyendo medicaciones vendidas sin prescripci??n). Favor de preguntar a thompson medico por cualquier kole. THESE ARE THE MEDICATIONS YOU SHOULD BE TAKING naproxen (naproxen 250 mg oral tablet) 1 Tab(s) By Mouth Twice a day for 5 Days. Refills: 0. MEDICATIONS GIVEN DURING MEDICAL VISIT naproxen 500 mg last dose given on 11/03/2018 at 11:47 Route: By Mouth NON-MEDICATION PRESCRIPTION SCHEDULING PHONE NUMBER: MEDICATION CHANGE DETAILS (Not your Final Home Medication List) During the course of your visit, your home medication list was updated with the most current information. The details of those changes are shown below: NEW MEDICATIONS Printed Prescriptions naproxen (naproxen 250 mg oral tablet) 1 Tab(s) By Mouth Twice a day for 5 Days. Refills: 0. Comment __ UPDATED MEDICATIONS None UNCHANGED MEDICATIONS None STOP TAKING THESE MEDICATIONS None DO NOT TAKE UNTIL YOU TALK TO YOUR DOCTOR None [facility] [address] [id number] Emergency Department Discharge Instructions Name: CHACHO BONNER Current Date: 11/03/2018 13:14:37 :1950 nbs; Primary Physician: Physician, PCP Unknown We would like to thank you for choosing [facility] for your emergency medical needs. We examined and treated you today on an emergency basis only. This was not a substitute for, or an effort to provide, complete medical care. In most cases, you must let your doctor (or the doctor we referred you to) check you again. Tell your doctor about any new or lasting problems. We cannot recognize and treat all injuries or illnesses in one emergency department visit. After you leave, you should follow the directions attached. When arranging for follow-up care with your physician/referral identify yourself as being seen in the emergency department. Instructions for obtaining X-rays: When following up with your doctor, you may need to take copies of your x-rays that were done in the Emergency Department. If you didn't receive these upon your discharge from the emergency department, please call . When the final report becomes available and it is reviewed, the emergency department will attempt to contact you if there are any changes in your instructions. It is important that you leave accurate information with us on how to contact you. IF you cannot be contacted, YOU must contact the follow-up doctor that you were assigned to make sure that the final official x-ray report does not require a change in your treatment. Instructions for obtaining medical records: If you need a copy of your medical records for follow-up, please contact the Health Information Management Department at . Their office hoursare 8 AM- 4:30 PM, Sunday through Sunday. Please note: Results are not immediately available. Please allow a minimum of 36 hours for documentation and results. If you were prescribed an antibiotic: Antibiotics are life-saving drugs and they need to be used properly. Your team might change your antibiotic because test results show that a different antibiotic would be better to treat your infection. Like all medications, antibiotics have side effects. Some can be serious. This includes the risk of getting an antibiotic-resistant infection later, which may be difficult to treat. Remember to take your antibiotics as prescribed. If you have any questions please talk to your healthcare team. Seatbelts: There is no doubt that seatbelts save lives. Everyday, people without seatbelts have more serious injuries. Have everyone buckle up, using age appropriate seatbelts or car seats, to reduce their risk of injury. Smoking: If you do smoke, we encourage you to stop. Smoking affects all aspects of your health and the health of those around you. Call the [employer] at 4-054-TGYX-USA or the [employer] at 5-983-KRS-8222 for more information. High blood pressure: Your screening blood pressure today was 139 mm Hg / 67 mm Hg. Hypertension (high blood pressure) is blood pressure over 120/80. People with hypertension should contact their primary care provider within 30 days to follow up. Check your patient portal for additional blood pressure information. Immunizations: Immunization is a way to protect against deadly infections. Discuss this with your child's calender feeder, or Public Health Department. Your family practice doctor can determine if you need pneumonia or flu vaccine. [facility] can be reached at . Substance Abuse Program: Concerns with addiction to alcohol, benzodiazepines (Ativan or Xanax) and Opiates (Heroin, Percocet, OxyContin, Methadone or Fentanyl)? [facility] offers an inpatient Substance Abuse Program to help treat the symptoms associated with medical detoxification of addictive substances. The new program offers care for non- adults (18 and older) looking to break the chain to addictive chemicals. The Substance Abuse Program is a voluntary inpatient admission and it starts with a pre-screening phone call to a transition social worker. During the call, goals and objectives for recovery and how the patient will transition to outpatient care will be established. Please call [phone] to get help today. Domestic Violence: If you are a victim of domestic violence (physical, verbal, or emotional), you are not alone. Discuss this with your physician or a friend and call Choices Hotline ( for assistance and support. You are the most important factor in your recovery. Follow the provided instructions carefully. Take your medications as prescribed. Most importantly, see a doctor again as discussed. If you have problems that we have not discussed, call or visit your doctor right away. If you do not have a primary care physician, we have provided one for you to follow up with. When you call for an appointment, please inform them that you were seen in the emergency department and the date of your visit. If you are unable to reach your doctor and are still experiencing problems, return to the emergency department. For assistance finding a primary care physician, call the Physician Referral Line at . Suicide Hotline: Your mental and emotional well-being is important. If you are in a mental health crisis or are having thoughts of suicide, please call the nationwide suicide hotline, anytime day or night, at 9-750-075-THOW. Pharmacy Information: Below is a list of 24 hour pharmacies that we are aware of. We suggest that you call the specific pharmacy for their hours before traveling to a location. Hours may vary on holidays. [facility] [address] [phone] [address] [place], [place] [address] [phone] [address] [place], [place] [address] [phone] [address] [place], [place] [phone] [address] [place], [place] [phone] [address] [place], [place] [phone] [address] [place], [place] [phone] Take all medications as directed. If you need prescription assistance, contact the following agencies: ?? Partnership for Prescription Assistance at or www.pparx.org ?? [place] at or www.Validusbestrx.org ?? www.[employer] T[employer].com is a site with many valuable coupons Patient Education Materials CHACHO BONNER has been given the following patient education materials: [address] [address] Name: CHACHO BONNER : 1950 Current Date: 11/03/2018 13:14:36 Primary Care Provider Name: Physician, PCP Unknown, Physician Phone: Patient Education Materials CHACHO BONNER has been given the following patient education materials: [facility] Emergency Department [address] [place], [place] [address] Work Release Form This notice verifies that your employee Chacho Bonner was seen in this facility on 11/03/18. Excused from work for 3 days The following restrictions: None: NOTE: If symptoms continue and the employee is unable to perform the full duties of their job by this date, please advise the employee to return to this facility or make an appointment with the referral physician for further evaluation. Caitlin Olsen PAC ED Physician/Provider Musculoskeletal Hip Pain Your hip is the joint between your upper legs and your lower pelvis. The bones, cartilage, tendons, and muscles of your hip joint perform a lot of work each day supporting your body weight and allowing you to move around. Hip pain can range from a minor ache to severe pain in one or both of your hips. Pain may be felt on the inside of the hip joint near the groin, or the outside near the buttocks and upper thigh. You may have swelling or stiffness as well. HOME CARE INSTRUCTIONS ???Take medicines only as directed by your health care provider. ???Apply ice to the injured area: ???Put ice in a plastic bag. ???Place a towel between your skin and the bag. ???Leave the ice on for 15?20 minutes at a time, 3?4 times a day. ???Keep your leg raised (elevated) when possible to lessen swelling. ???Avoid activities that cause pain. ???Follow specific exercises as directed by your health care provider. ???Sleep with a pillow between your legs on your most comfortable side. ???Record how often you have hip pain, the location of the pain, and what it feels like. SEEK MEDICAL CARE IF: ???You are unable to put weight on your leg. ???Your hip is red or swollen or very tender to touch. ???Your pain or swelling continues or worsens after 1 week. ???You have increasing difficulty walking. ???You have a fever. SEEK IMMEDIATE MEDICAL CARE IF: ???You have fallen. ???You have a sudden increase in pain and swelling in your hip. MAKE SURE YOU: ???Understand these instructions. ???Will watch your condition. ???Will get help right away if you are not doing well or get worse. This information is not intended to replace advice given to you by your health care provider. Make sure you discuss any questions you have with your health care provider. Document Released: 07/12/2010 Document Revised: 02/12/2015 Document Reviewed: 09/18/2013 Elsevier Interactive Patient Education ?2015 [employer]. Patient Signature Responsible Libertarian Relationship to Patient Clinician Signature Date ><><><><><><><><><><><> <><><><><><><><><><><> Patient Visit Summary Signature CHACHO BONNER has been given the following list of patient education materials, prescriptions and follow-up instructions: MICHELINE Ryan JEANNE, have received the above patient education materials/instructions and have verbalized understanding: Date Time Patient Signature Date Time Provider Signature Normal [facility] XR Hip 2-3 Views RTon 2018 XR Hip 2-3 Views RT EXAMINATION TYPE: XR Hip 2-3 Views RT DATE OF EXAM : 11/03/2018 10:13 AM HISTORY: Pain w Trauma, pain level = 10/10 after a fall one month ago, COMPARISON: None FINDINGS: There is a hip prosthesis on the right. No fracture or dislocation. Severe arthritic changes in the superior left hip joint space. Multilevel degenerative changes in lumbar spine. No pelvic bone fracture. IMPRESSION: No acute abnormality [facility] thanks you for the opportunity to care for your patient. Workstation ID: [id number] - [id number] FINAL REPORT Dictated By: Arron Brooks MD 11/03/2018 10:19 Assigned Physician: Arron Brooks MD Reviewed and Electronically Signed By: Arron Brooks MD 11/03/2018 10:22 Transcribed by: HUBERT 11/03/2018 10:19 Technologist: MANUEL Normal [facility] Mammography Screening Amaury B ilateralon 08-29-2017 Mammography Screening Amaury Bilateral Stable mammographic appearance without evidence of malignancy. Category 1 - Negative, no evidence of malignancy. Normal interval follow-up is recommended in 12 months. OVERALL ASSESSMENT - NEGATIVE A letter of notification will be sent to the patient regarding the results. [facility], along with the National Comprehensive Cancer Network, the [employer], and [facility], recommend annual screening mammograms for women age 40 and older. KFG/duran Workstation ID: [id number] Invalid Interpretation Code FUJI SYNAPSE [facility] Mammography Screening Amaury Bilateral EXAMINATION: MM SCREENING AMAURY BILATERAL HISTORY: Annual screening. Family history of breast cancer in mother, diagnosed at age 57. Prior benign excisional biopsy in the left breast. TECHNIQUE: Computer-aided detection was utilized in the interpretation of this exam. COMPARISON: 09/02/2016, 08/14/2015, 08/29/2014. FINDINGS: 2D standard and 3D tomosynthesis combination imaging performed. Scattered fibroglandular elements are present. Surface marker placed 9 o'clock left breast to indicate site of a prior benign surgical excision. No new mass, suspicious calcifications, or areas of architectural distortion are seen bilaterally. Invalid Interpretation Code [facility] Vital Signs Date Time Vital Sign Value Performing Clinician Faci lity 12-07-2023 09:05-0400 Body height 162.56 cm MD Charlene Cruz Work Phone: [facility] 12-07-2023 09:05-0400 Body mass index (BMI) [Ratio] 22.8 kg/m2 MD Charlene Cruz Work Phone: [facility] 12-07-2023 09:05-0400 Body temperature 97.1 [degF] MD Charlene Cruz Work Phone: [facility] 12-07-2023 09:05-0400 Body weight 60.55 kg MD Charlene Cruz Work Phone: [facility] 12-07-2023 09:05-0400 Diastolic blood pressure 88 mm[Hg] MD Charlene Cruz Work Phone: [facility] 12-07-2023 09:05-0400 Heart rate 80 /min MD Charlene Cruz Work Phone: [facility] 12-07-2023 09:05-0400 Respiratory rate 18 /min MD Charlene Cruz Work Phone: [facility] 12-07-2023 09:05-0400 SaO2% (BldA) [Mass fraction] 97 % MD Charlene Cruz Work Phone: [facility] 12-07-2023 09:05-0400 Systolic blood pressure 155 mm[Hg] MD Charlene Cruz Work Phone: [facility] 11-30-2023 13:41-0400 Body height 162.56 cm MD Charlene Cruz Work Phone: [facility] 11-30-2023 13:41-0400 Body mass index (BMI) [Ratio] 23.6 kg/m2 MD Charlene Cruz Work Phone: [facility] 11-30-2023 13:41-0400 Body temperature 98 [degF] MD Charlene Cruz Work Phone: [facility] 11-30-2023 13:41-0400 Body weight 62.59 kg MD Charlene Cruz Work Phone: [facility] 11-30-2023 13:41-0400 Diastolic blood pressure 72 mm[Hg] MD Charlene Cruz Work Phone: [facility] 11-30-2023 13:41-0400 Heart rate 89 /min MD Charlene Cruz Work Phone: [facility] 11-30-2023 13:41-0400 Respiratory rate 18 /min MD Charlene Cruz Work Phone: [facility] 11-30-2023 13:41-0400 SaO2% (BldA) [Mass fraction] 95 % MD Charlnee Cruz Work Phone: [facility] 11-30-2023 13:41-0400 Systolic blood pressure 126 mm[Hg] MD Charlene Cruz Work Phone: [facility] 04-09-2023 13:09-0500 Body height 162.6 cm Jesus Salas MD Work Phone: [facility] 04-09-2023 13:09-0500 Body mass index (BMI) [Ratio] 23.52 kg/m2 Jesus Salas MD Work Phone: [facility] 04-09-2023 13:09-0500 Body weight 62.14 kg Jesus Salas MD Work Phone: [facility] [employer] [facility] 01-16-2023 13:50-0500 Body height 162.56 cm Lesa Mack Other [employer] Other 01-16-2023 13:50-0500 Body mass index (BMI) [Ratio] 24.13 kg/m2 Lesa Mack Other [employer] Other 01-16-2023 13:50-0500 Body temperature 98 [degF] Lesa Mack Other [employer] Other 01-16-2023 13:50-0500 Body weight 63.78 kg Lesa Mack Other [employer] Other 01-16-2023 13:50-0500 Diastolic blood pressure 69 mm[Hg] Lesa Mack Other [employer] Other 01-16-2023 13:50-0500 Respiratory rate 18 /min Lesa Mack Other [employer] Other 01-16-2023 13:50-0500 SaO2% (BldA) [Mass fraction] 96 % Lesa Mack Other [employer] Other 01-16-2023 13:50-0500 Systolic blood pressure 140 mm[Hg] Lesa Mack Other [employer] Other 12-11-2022 16:00-0500 Body height 162.56 cm Romi Toth Other [employer] Other 12-11-2022 16:00-0500 Body mass index (BMI) [Ratio] 23.86 kg/m2 Romi Toth Other [employer] Other 12-11-2022 16:00-0500 Body temperature 97.6 [degF] Romi Curryarney Other [employer] Other 12-11-2022 16:00-0500 Body weight 63.05 kg Romi Mendiolaney Other [employer] Other 12-11-2022 16:00-0500 Diastolic blood pressure 83 mm[Hg] Romi Curryarney Other [employer] Other 12-11-2022 16:00-0500 Respiratory rate 18 /min Romi Curryarney Other [employer] Other 12-11-2022 16:00-0500 SaO2% (BldA) [Mass fraction] 98 % Romi Curryarney Other [employer] Other 12-11-2022 16:00-0500 Systolic blood pressure 153 mm[Hg] Romi Curryarney Other [employer] Other 10-25-2022 15:50-0400 Body height 162.56 cm Lesa Martina Other [employer] Other 10-25-2022 15:50-0400 Body mass index (BMI) [Ratio] 33.47 kg/m2 Lesa Martina Other [employer] Other 10-25-2022 15:50-0400 Body temperature 98.9 [degF] Lesa Martina Other [employer] Other 10-25-2022 15:50-0400 Body weight 88.45 kg Lesa Martina Other [employer] Other 10-25-2022 15:50-0400 Diastolic blood pressure 71 mm[Hg] Lesa Mack Other [employer] Other 10-25-2022 15:50-0400 Respiratory rate 18 /min Lesa Mack Other [employer] Other 10-25-2022 15:50-0400 SaO2% (BldA) [Mass fraction] 98 % Lesa Mack Other [employer] Other 10-25-2022 15:50-0400 Systolic blood pressure 151 mm[Hg] Lesa Mack Other [employer] Other 10-01-2022 09:00-0400 Body height 162.56 cm Sharmaine Alfonso Other [employer] Other 10-01-2022 09:00-0400 Body mass index (BMI) [Ratio] 30.86 kg/m2 Sharmaine Alfonso Other [employer] Other 10-01-2022 09:00-0400 Body temperature 98.2 [degF] Sharmaine Alfonso Other [employer] Other 10-01-2022 09:00-0400 Body weight 81.56 kg Sharmaine Alfonso Other [employer] Other 10-01-2022 09:00-0400 Diastolic blood pressure 72 mm[Hg] Sharmaine Alfonso Other [employer] Other 10-01-2022 09:00-0400 Respiratory rate 18 /min Sharmaine Alfonso Other [employer] Other 10-01-2022 09:00-0400 SaO2% (BldA) [Mass fraction] 98 % Sharmaine Alfonso Other [employer] Other 10-01-2022 09:00-0400 Systolic blood pressure 142 mm[Hg] Sharmaine Alfonso Other [employer] Other 05-29-2022 15:45-0400 Body height 162.56 cm Darrius Moreland Other [employer] Other 05-29-2022 15:45-0400 Body mass index (BMI) [Ratio] 34.84 kg/m2 Darrius Merly Other [employer] Other 05-29-2022 15:45-0400 Body weight 92.08 kg Darrius Allenley Other [employer] Other 04-05-2022 14:15-0500 Body height 162.56 cm Darrius Merly Other [employer] Other 04-05-2022 14:15-0500 Body mass index (BMI) [Ratio] 24.54 kg/m2 Darrius Merly Other [employer] Other 04-05-2022 14:15-0500 Body weight 64.86 kg Darrius Merly Other [employer] Other 02-10-2022 09:30-0500 Body height 162.56 cm Darrius Merly Other [employer] Other 02-10-2022 09:30-0500 Body mass index (BMI) [Ratio] 24.54 kg/m2 Darrius Merly Other [employer] Other 02-10-2022 09:30-0500 Body weight 64.86 kg Darrius Moreland Other [employer] Other 03-09-2021 11:15-0500 Body height 162.56 cm Lesa Mack Other [employer] Other 03-09-2021 11:15-0500 Body mass index (BMI) [Ratio] 23.69 kg/m2 Lesa Mack Other [employer] Other 03-09-2021 11:15-0500 Body temperature 98.1 [degF] Lesa Mack Other [employer] Other 03-09-2021 11:15-0500 Body weight 62.6 kg Lesa Mack Other [employer] Other 03-09-2021 11:15-0500 Respiratory rate 18 /min Lesa Mack Other [employer] Other 03-09-2021 11:15-0500 SaO2% (BldA) [Mass fraction] 98 % Lesa Mack Other [employer] Other Encounters Encounter Date Encounter Type Care Provider Facility Start: 12-07-2023 End: 12-07-2023 ambulatory MD Charlene Cruz Work Phone: [facility] Work Phone: Start: 12-07-2023 End: 12-07-2023 Patient encounter procedure MD Charlene Cruz Work Phone: [facility] Work Phone: Start: 11-30-2023 End: 11-30-2023 ambulatory MD Charlene Cruz Work Phone: [facility] Work Phone: Start: 11-30-2023 End: 11-30-2023 Patient encounter procedure MD Charlene Cruz Work Phone: [facility] Work Phone: Start: 09-17-2023 End: 09-17-2023 ambulatory JOEL D [facility] Ambulatory [facility] Start: 09-03-2023 End: 09-03-2023 ambulatory [facility] Start: 07-23-2023 End: 07-23-2023 ambulatory [facility] Start: 07-11-2023 End: 07-11-2023 Evaluation and management of inpatient [facility] Start: 07-10-2023 End: 07-11-2023 Evaluation and management of inpatient [facility] Start: 07-10-2023 End: 07-10-2023 Evaluation and management of inpatient [facility] Start: 06-26-2023 End: 06-28-2023 ambulatory [facility] Start: 06-26-2023 Encounter for other preprocedural examination [facility] Start: 05-31-2023 End: 06-01-2023 ambulatory CHARLENEHER Marychuy CRUZ [facility] Start: 04-11-2023 End: 04-11-2023 ambulatory BRITT HINSON Not Available Start: 04-09-2023 End: 04-09-2023 Orders Only Jesus Salas MD Work Phone: [facility] Comment on above: Left hip pain (Prima ry Dx) Start: 04-09-2023 End: 04-09-2023 Office outpatient new 45 minutes Jesus Salas MD Work Phone: [facility] Comment on above: Primary osteoarthrit is of left hip (Primary Dx) Start: 02-07-2023 End: 02-07-2023 ambulatory Darrius Moreland Other [employer] Other Start: 02-07-2023 Office outpatient vi sit 15 minutes Darrius Moreland [facility] Start: 02-03-2023 End: 02-03-2023 Emergency department patient visit CHARLENE CRUZ [facility] Start: 01-16-2023 End: 01-16-2023 ambulatory Lesa Martina Other [employer] Other Start: 01-16-2023 Office outpatient vi sit 15 minutes Lesa Martina [facility] Start: 12-23-2022 End: 12-24-2022 ambulatory CHARLENE CRUZ [facility] Start: 12-11-2022 End: 12-11-2022 ambulatory Romi Toth Other [employer] Other Start: 12-11-2022 Office outpatient vi sit 25 minutes Romi Toth [facility] Start: 10-25-2022 End: 10-25-2022 ambulatory Lesa Martina Other [employer] Other Start: 10-25-2022 Office outpatient vi sit 15 minutes Lesa Martina [facility] Start: 10-01-2022 End: 10-01-2022 ambulatory Sharmaine Alfonso Other [employer] Other Start: 10-01-2022 Office outpatient vi sit 15 minutes Sharmaine Alfonso [facility] Start: 05-29-2022 End: 05-29-2022 ambulatory MD Charlene Cruz Work Phone: [facility] Work Phone: Start: 05-29-2022 End: 05-29-2022 Patient encounter procedure Darrius Merly [facility] Start: 04-18-2022 End: 04-18-2022 ambulatory Darrius Merly Other [employer] Other Start: 04-18-2022 Telephone encounter Darrius Moreland [facility] Start: 04-05-2022 Postop follow up vis it related to original px Darrius Moreland [facility] Start: 04-05-2022 End: 04-05-2022 ambulatory MD Charlene Cruz Work Phone: [facility] Work Phone: Start: 04-05-2022 End: 04-05-2022 Patient encounter procedure MD Charlene Cruz Work Phone: [facility] Start: 03-08-2022 End: 03-08-2022 ambulatory Darrius Moreland Other [employer] Other Start: 03-08-2022 Postop follow up vis it related to original px Darrius Merly [facility] Start: 03-08-2022 End: 03-08-2022 Patient encounter procedure MD Charlene Cruz Work Phone: [facility] Start: 02-10-2022 End: 02-10-2022 ambulatory Darrius Moreland Other [employer] Other Start: 02-10-2022 FQHC visit new patient Darrius Moreland [facility] Start: 02-07-2022 End: 02-07-[address] CHARLENE CRUZ Facility:[facility] Start: 03-09-2021 End: 03-09-2021 ambulatory Lesa Mack Other [employer] Other Start: 03-09-2021 Office outpatient vi sit 15 minutes Lesa Mack [facility] Start: 03-15-2020 End: 03-15-2020 Orders Only Hailey Nieves Work Phone: [facility] Start: 10-25-2019 End: 10-25-2019 Subsequent hospital visit by physician Charlene Cruz Work Phone: [facility] Comment on above: Visit for screening mammogram Start: 12-27-2018 Patient encounter procedure [facility] Facility:[facility] Start: 12-11-2018 Patient encounter procedure [facility] Facility:[facility] Start: 12-02-2018 End: 12-03-2018 Patient encounter procedure [facility] Facility:[facility] Start: 08-29-2017 End: 08-29-2017 Patient encounter Charlene Cruz Work Phone: [facility] Procedures Date Procedure Procedure Detail Performing Clinician Start: 11-30-2023 Plain chest X-ray MD Dominic Cruz Work Phone: Start: 05-29-2022 X-ray of left knee MD Irene Cruz Work Phone: Start: 05-29-2022 X-ray of right foot MD Charlene Cruz Work Phone: Start: 04-05-2022 X-ray of left knee MD Irene Cruz Work Phone: Start: 04-05-2022 X-ray of right foot MD Charlene Cruz Work Phone: Start: 03-08-2022 X-ray of left knee MD Irene Cruz Work Phone: Start: 03-08-2022 X-ray of right foot MD Charlene Cruz Work Phone: Start: 09-20-2020 Adult depression screening assessment Jesus Salas MD Work Phone: Start: 10-25-2019 Mammography Hailey mays Start: 11-02-2018 Mammography Charlene evans Start: 12-13-2015 Colonoscopy Charlene evans Plan of Treatment Date Care Activity Detail Author Start: 12-12-2025 Screening for malign ant neoplasm of colon [facility] Start: 04-08-2024 Adult BMI Screening Adult BMI Screen ing [facility] Start: 04-08-2024 Tobacco Screening Tobacco Screening [facility] Start: 10-06-2022 Influenza vaccination Influenza Vacc ine [facility] Start: 09-20-2021 Depression Screening Depression Scre ening [facility] Start: 10-24-2020 Screening mammography [facility] Start: 11-03-2019 Screening mammography Mammogram [facility] Start: 10-07-2019 Influenza vaccinatio n given Sequential Influenza Vaccine (#1) [facility] Start: 10-06-2017 Influenza vaccination SEQUENTI AL INFLUENZA VACCINE (#1) [facility] Start: 09-10-2015 Fall Risk Screening Fall Risk Screen ing [facility] Start: 09-10-2015 Pneumococcal vaccination PNEUM OCOCCAL VACCINE AGE 65+ (1 of 2 - PCV13) [facility] Start: 2010 Zoster vaccine hzv l aakash for subcutaneous use ZOSTER VACCINE [facility] Start: 2000 Administration of he rpes zoster vaccine Zoster Vaccines (1 of 2) [facility] Start: 2000 Administration of varicella zoster vaccine Zoster (Shingles) Vaccine (1 of 2) [facility] Start: 2000 Screening for malign ant neoplasm of colon [facility] Start: 1969 DTaP,Tdap and Td Vac cines (1 - Tdap) DTaP,Tdap and Td Vaccines (1 - Tdap) [facility] Start: 1968 Hepatitis C antibody , confirmatory test Hepatitis C Screening [facility] Start: 1966 COVID-19 Vaccine (1 of 2) COVI D-19 Vaccine (1 of 2) [facility] Start: 1962 Adolescent depressio n screening assessment Depression Screening (PHQ9) [facility] Start: 1953 History and physical examination, annual for health maintenance Wellness Visit [facility] Start: 1950 Fall risk assessment Falls Risk Asse ssment [facility] Start: 1950 Medicare Annual Well ness Visit Medicare Annual Wellness Visit [facility] Start: 1950 HEPATITIS C SCREENING HEPATITIS C SC REENING [facility] Start: 1950 Screening colonoscopy COLONOSCOPY [facility] Start: 1950 End: 1950 Screening for osteoporosis DEXA SCAN [facility] Start: 1950 End: 1950 Tetanus vaccination [facility] End: 10-25-2019 MG Breast - bilateral screening Mammography Screening [facility] Routine Visit for screening mammogram Once for 1 Occurrences starting 10/25/2019 until 10/25/2019 [facility] Comment on above: Once for 1 Occurrenc es starting 10/25/2019 until 10/25/2019 MG Breast - bilatera l screening Mammography Screening [facility] Routine Visit for screening mammogram 10/25/2019 11:54 AM EDT [facility] Patient Education Sinusitis, Adult ED [facility] Work Phone: Payers Date Payer Category Payer Self-pay 2022 Private Health Insurance [id number] 2018 Private Health Insurance [employer] [id number] 2018-Present [phone] [address] [address] [place] [address] [id number] 2015 Medicare MEDICARE MEDICAR E PART A & B [id number] 2015-Present [place] [id number] 2015 Medicare MEDICARE MEDICAR E PART A & B [id number] 2015-Present [phone] [address] [place] [address] [id number] 1959 Medicare [id number] 1959 Private Health Insurance [facility] [id number] 1950 Unknown [id number] [id number] .2.593 1950 Unknown [id number] 2.16.840.1.726078.3.579 .2.593 1950 Unknown [id number] 2.16.840.1.245627.3.579 .2.593 1950 Unknown [id number] 2.16.840.1.842456.3.579 .2.593 1950 Unknown [id number] 2.16.840.1.430008.3.579 .2.900 1950 Unknown [id number] 2.16.840.1.322761.3.579 .2.1259 1950 Unknown [id number] 2.16.840.1.077444.3.579 .2.1286 1950 Unknown [id number] 2.16.840.1.529964.3.579 .2.1286 1950 Unknown [id number] 2.16.840.1.775283.3.579 .2.1286 1950 Unknown [id number] 2.16.840.1.893013.3.579 .2.1286 1950 Unknown [id number] 2.16.840.1.283722.3.579 .2.1286 1950 Unknown [id number] 2.16.840.1.854723.3.579 .2.1286 1950 Unknown [id number] 2.16.840.1.084713.3.579 .2.1286 1950 Unknown [id number] 2.16.840.1.324110.3.579 .2.1286 1950 Unknown [id number] 2.16.840.1.884750.3.579 .2.1286 1950 Unknown [id number] 2.16.840.1.794003.3.579 .2.1286 1950 Unknown [id number] 2.16.840.1.175775.3.579 .2.1286 1950 Unknown [id number] 2..840.1.740990.3.579 .2.1286 1950 Unknown [id number] 2..840.1.787782.3.579 .2.1286 Unknown Regular Insurance [id number] Unknown [id number] 2.840.1.347038.3.579 .2.531 Social History Date Type Detail Facility Start: 08-29-2017 End: 11-02-2018 Tobacco smoking status MIIS Unknown if ever smoked [facility] Start: 1950 Sex Assigned At Not on file [facility] Exposure to SARS-CoV -2 (event) Not sure [facility] Start: 03-18-2020 End: 04-09-2023 Sex Assigned At [employer] Other Start: 1950 Sex Assigned At Female F [facility] Start: 04-09-2023 Tobacco smoking stat us NHIS Never smoked tobacco [facility] Start: 04-09-2023 Tobacco use and exposure Smokeless tobacco non-user [facility] Start: 03-18-2020 End: 04-09-2023 History of Social function [facility] Adolescent depressio n screening assessment 0 [facility] Clinical Notes 03-09-2021 to 04-09-2023 Jesus Salas MD - 04/09/2023 1:30 PM EST Note Date & Type Note Facility 04-09-2023 History of Present illness Narrative 04/09/2023 Subjective: This is a 72-year-old female that is in today for left hip osteoarthritis with debilitation and pain. Patient states that as high as 10/10 it is gotten worse over the last year. She states the pain is in the groin. She tries naproxen and Aspercreme to try to keep the pain under control she states she has never had an operation or trauma to this hip. He is never received injection. She has not need a cane or walker but at times the hip can feel unstable. Patient had a right [place] hip resurfacing at [facility] in 2010. She states that this is functioning well without pain. No current outpatient medications on file. No current facility-administered medications for this visit. No Known Allergies Past Surgical History: Procedure Laterality Date BREAST BIOPSY Left benign FOOT REPLANTATION Left HIP RESURFACING Right No past medical history on file. Social History Tobacco Use Smoking status: Never Smokeless tobacco: Never No family history on file. ROS: 10 systems reviewed with the patient and where negative except for as mentioned in the HPI. No myalgias, fevers, malaise, or weight loss Ht 162.6 cm (5' 4 ) Wt 62.1 kg (137 lb) BMI 23.52 kg/m Body mass index is 23.52 kg/m . Objective: Left hip examination: Internal rotation is 10 external rotation is 10 . There has no signs of infection no excessive heat no erythema no cyanosis pallor or edema. There is tenderness with manipulation. With knee in flexion he can flex hip up to 110 . No gross deformities. Cardiovascular: Normal Rate and Rhythm. Normal chest rise and fall. No visible venous distention. Resp: Normal breathing pattern, No obvious wheeze or difficulty breathing. ENT: Normocephalic. eyes equal, round, and reactive. throat midline. Mucous membranes appear moist. No visible masses Pysch: Patient is cooperative, pleasant, A&O X3. Appropriate Affect. Imaging: My personal interpretation of left hip x-rays showing severe degenerative osteoarthritis with superiorly migrated femoral head that is also lateralized. There is cystic changes especially over the [id number] contact between the femoral head and the acetabulum. Right [place] hip looks to be in good position without any evidence of wear or show inches in the bony structure. Impression: 1. Left hip with primary osteoarthritis. 2. History of right [place] hip. Plan/Disp: Of risks benefits and expected outcomes for a left total hip arthroplasty was outlined for the patient patient wishes to proceed consent was obtained. She will be scheduled at her earliest convenience. I, Dr Salas, personally performed the face to face evaluation on this patient. I discussed with the patient and confirmed the accuracy and completeness of the aforementioned history, and I personally performed the clinical examination of the patient. I have established and discussed the course of treatment with the patient and Karri Banegas PA-C. My medical decision making and treatment plan are as follows: Patient's history and physical reviewed with the patient in the PA. This patient has end-stage primary osteoarthritis left hip wants to proceed with total hip arthroplasty. Described this at great length including risks benefits possible outcomes consent was signed. See him for surgery at her convenience [facility] was reviewed by RAS REID. documented in this encounter [facility] 02-07-2023 Evaluation note Encounter Date Diagnosis Assessment Notes Feb, Contusion of left foot, initial encounter (ICD-10 - S90.32XA) Chacho presents with left foot contusion. At this juncture we have discussed the findings and diagnosis as well as personally reviewed appropriate imaging and performed interpretation of related testing and examination with the patient in office today. Prior medical notes from the [facility] and history have been reviewed. At this time I would recommend conservative treatment. Okay to advance as tolerated. Okay to return to normal shoewear. Monitor over the next 3 to 4 weeks and return if symptoms persist. We will plan for follow-up as needed. The patient has been involved in our cooperative treatment plan and agrees to move forward with treatment at this time. Discussed with patient based on her symptoms, exam, and imaging. Likely etiologies of the patient's symptoms were discussed. Patient is likely suffering from left foot contusion. We discussed various treatment options. Discussed with patient she can discontinue shoe given to her at the ER and she may wear a well supportive shoe. Discussed with patient if she is doing better she can return as needed, if she continues to have pain in 4 weeks to follow up in office Feb, Other See orders for this visit as documented in the electronic medical record. [employer] Other 12-12-2023 Evaluation note* Encounter Date Diagnosis Assessment Notes Treatment Notes Treatment Clinical Notes Jan, Suspected COVID-19 virus infection (ICD-10 - Z20.822) Jan, Viral URI (ICD-10 - J06.9) Drink plenty fluids, get plenty of rest. The fluticasone nasal spray as prescribed until your symptoms improved. Continue to take Claritin or Zyrtec for sneezing. Take Tylenol or Motrin for aches pains or fevers. Run a coolmist humidifier at your bedside. Follow-up with your family physician if no improvement in 2 to 3 days [employer] Other 11-06-2023 Evaluation note* Encounter Date Diagnosis Assessment Notes Treatment Notes Treatment Clinical Notes Dec, Left otitis media, unspecified otitis media type (ICD-10 - H66.92) Left otitis media. Prescribed amoxicillin patient should complete entire course of antibiotic even if symptoms improve. Take Medrol Dosepak as prescribed. Recommended patient use Flonase nasal spray but she stated that previously Flonase nasal spray caused her to have bloody noses. Encourage patient to follow-up with PCP if symptoms do not improve or worsen. All questions and concerns addressed. [employer] Other 09-20-2023 Evaluation note* Encounter Date Diagnosis Assessment Notes Treatment Notes Treatment Clinical Notes Oct, Paronychia of finger of left hand (ICD-10 - L03.012) Paronychia home care material was printed Drink plenty fluids, get plenty of rest. Take the cephalexin as prescribed until gone. Soak your finger in warm soapy water 2-3 times a day. Apply antibiotic ointment to the nail daily. Follow-up with your family physician if no improvement in 2 to 3 days [employer] [facility] Other 08-27-2023 Evaluation note* Encounter Date Diagnosis Assessment Notes Treatment Notes Treatment Clinical Notes Sep, Non-recurrent acute serous otitis media of left ear (ICD-10 - H65.02) Discussed with patient no bacterial ear infection. Does have effusion posterior to TM which is likely causing symptoms. Recommend she try Claritin or Claritin-D, Flonase regularly for the next week and a half. We will also trial Medrol Dosepak. May use ibuprofen or Tylenol for discomfort. Follow-up with PCP if not improving over the next 7 to 10 days. Patient verbalized understanding of treatment plan. [employer] [facility] Other 04-24-2023 Evaluation note* Encounter Date Diagnosis Assessment Notes Treatment Notes Treatment Clinical Notes May, Other closed fracture of proximal end of left tibia with routine healing, subsequent encounter (ICD-10 - S82.192D) Chacho returns with right fifth metatarsal fracture and left proximal fibula fracture. At this juncture we have discussed the findings and diagnosis as well as personally reviewed appropriate imaging and performed interpretation of related testing and examination with the patient in office today. Okay for activities as tolerated without restrictions for right foot left knee. Follow-up as needed The patient has been involved in our cooperative treatment plan and agrees to move forward with treatment at this time. May, Closed displaced fracture of fifth metatarsal bone of right foot with routine healing, subsequent encounter (ICD-10 - S92.351D) May, Posterior tibial tendinitis of right lower extremity (ICD-10 - M76.821) May, Peroneal tendinitis, left leg (ICD-10 - M76.72) Chacho complains of left ankle pain today. This seems to be peroneal tendinitis. She was to do physical therapy for this. We have ordered this today and I will see her back as needed for this May, Left foot pain (ICD-10 - M79.672) Patient given order for physical therapy [employer] [facility] Other 03-01-2023 Evaluation note* Encounter Date Diagnosis Assessment Notes Treatment Notes Treatment Clinical Notes Apr, Other closed fracture of proximal end of left tibia with routine healing, subsequent encounter (ICD-10 - S82.192D) Chacho returns with right fifth metatarsal fracture and left proximal fibula fracture. At this juncture we have discussed the findings and diagnosis as well as personally reviewed appropriate imaging and performed interpretation of related testing and examination with the patient in office today. Okay to discontinue left knee brace use with weightbearing as tolerated. Continue normal shoe with weightbearing as tolerated to right foot. Okay for work with rest. Calcium and vitamin D supplementation. Pain control. We will plan for follow-up 6 weeks for final x-rays of right foot and left knee. The patient has been involved in our cooperative treatment plan and agrees to move forward with treatment at this time. Apr, Closed displaced fracture of fifth metatarsal bone of right foot with routine healing, subsequent encounter (ICD-10 - S92.351D) Chacho returns 8.5 weeks status post left proximal tibia fracture and right 5th metatarsal fracture. She continues to heal routinely she may begin to wear normal shoes and return to normal activites as tolerated with no restrictions. Advised to continue with gentle motion and strengthening exercises. She may use anti-inflammatory medications as needed. We will follow up in 6 weeks time for updated radiographs. Patient voices understanding and states no further questions at this time. Apr, Posterior tibial tendinitis of right lower extremity (ICD-10 - M76.821) [employer] [facility] Other 02-01-2023 Evaluation note* Encounter Date Diagnosis Assessment Notes Treatment Notes Treatment Clinical Notes Mar, Other closed fracture of proximal end of left tibia with routine healing, subsequent encounter (ICD-10 - S82.192D) Chacho presents with right fifth metatarsal fracture and left proximal fibula fracture. At this juncture we have discussed the findings and diagnosis as well as personally reviewed appropriate imaging and performed interpretation of related testing and examination with the patient in office today. Continue left knee brace use with weightbearing as tolerated. Continue flat soled shoe with weightbearing as tolerated to right foot. Okay for work with rest. Calcium and vitamin D supplementation. Pain control. We will plan for follow-up 4 weeks for repeat x-rays of right foot and left knee. The patient has been involved in our cooperative treatment plan and agrees to move forward with treatment at this time. Chacho returns 4 weeks status post left proximal tibia fracture and right 5th metatarsal fracture. Updated radiographs reviewed and discussed in detail with patient. She is progressing well and healing routinely. It appears the right 5th metatarsal fracture is healing more slowly than the left tibia fracture. The foot is still in proper alignment. I recommend she continues with use of post-op shoe and knee brace. Patient states she would like to return to work at this time. I will release her to work and normal activity as tolerated. We will follow up for recheck in 4 weeks time with updated radiographs of the right foot and left knee. Patient voiced understanding and states no further questions at this time. Mar, Closed displaced fracture of fifth metatarsal bone of right foot with routine healing, subsequent encounter (ICD-10 - S92.351D) Mar, Other Chacho presents with right fifth metatarsal fracture and left proximal fibula fracture. At this juncture we have discussed the findings and diagnosis as well as personally reviewed appropriate imaging and performed interpretation of related testing and examination with the patient in office today. Prior medical notes from ED and history have been reviewed. At this time I would recommend postop shoe wear to the right foot with weightbearing as tolerated, hinged knee brace to the left knee with weightbearing as tolerated and use of walker. Calcium and vitamin D supplementation. Pain control. We will plan for follow-up 4 weeks for repeat x-rays of right foot and left knee. The patient has been involved in our cooperative treatment plan and agrees to move forward with treatment at this time. [employer] [facility] Other 01-06-2023 Evaluation note* Encounter Date Diagnosis Assessment Notes Treatment Notes Treatment Clinical Notes Feb, Closed displaced fracture of fifth metatarsal bone of right foot, initial encounter (ICD-10 - S92.351A) Chacho presents with right fifth metatarsal fracture and left proximal fibula fracture. At this juncture we have discussed the findings and diagnosis as well as personally reviewed appropriate imaging and performed interpretation of related testing and examination with the patient in office today. Prior medical notes from ED and history have been reviewed. At this time I would recommend postop shoe wear to the right foot with weightbearing as tolerated, hinged knee brace to the left knee with weightbearing as tolerated and use of walker. Calcium and vitamin D supplementation. Pain control. We will plan for follow-up 4 weeks for repeat x-rays of right foot and left knee. The patient has been involved in our cooperative treatment plan and agrees to move forward with treatment at this time. Patient has sustained a 5th metatarsal fracture. We discussed that this can take at least 6 weeks to heal. We will allow gentle ankle and foot motion and gentle progressive weight bearing as tolerated as pain allows. Discussed with patient to continue to wear the post op shoe. Feb, Other closed fracture of proximal end of left tibia, initial encounter (ICD-10 - S82.192A) The patient has suffered a proximal tibial fracture. This appears to be stable and we will treat non-operatively. We have recommended to weight bearing as tolerated and use of a hinged knee brace. Discussed with patient to use walker for balance and support. Patient is in need of a hinged knee brace due to their diagnosis of proximal tibia fracture. This is needed for aid in activities of daily living by increasing safety and stability. This will be needed for approximately 6 months to a year. Patient given off work note Feb, Other See orders for this visit as documented in the electronic medical record. [employer] [facility] Other 01-03-2023 NotePROCEDURE: XR KNEE LT 4V or > HISTORY: Unspecified fall ; acute left knee pain after falling COMPARISON: None. FINDINGS: BONES:Acute, minimally/fracture involving the proximal fibula at the diametaphyseal junction. Minimal joint space narrowing of the knee joints with small periarticular osteophytes. SOFT TISSUES:No visible soft tissue swelling. EFFUSION:None visible. OTHER: Negative. IMPRESSION: 1. Acute, minimally displaced fracture of the proximal fibula. 2. 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 Electronically authenticated by: JEREMIAH KOHLER Date: 2022-02-07 14:08[facility]01-03-2023 NotePROCEDURE: XR ANKLE RT MIN 3 VIEWS, XR FOOT RT MIN 3 VIEWS HISTORY: Unspecified fall ; acute right lateral foot and ankle pain COMPARISON: XR bilateral ankle and foot 12/02/2018 FINDINGS: BONES:Acute, oblique fracture of the fifth metatarsal diaphysis without intra-articular extension; 2.5 mm dorsal medial displacement. Old, fracture/dislocation of the fourth digit middle phalanx; unchanged. Marked degenerative joint disease of the first metatarsophalangeal joint. Unremarkable ankle joint. SOFT TISSUES:Mild lateral soft tissue swelling. EFFUSION:None visible. OTHER: Negative. IMPRESSION: 1. Acute, mildly displaced oblique fracture of the fifth metatarsal diaphysis. 2. Stable, old irregularly healed fracture of the fourth digit middle phalanx. Electronically authenticated by: JEREMIAH KOHLER Date: 2022-02-07 14:05[facility]01-03-2023 NotePROCEDURE: XR ANKLE RT MIN 3 VIEWS, XR FOOT RT MIN 3 VIEWS HISTORY: Unspecified fall ; acute right lateral foot and ankle pain COMPARISON: XR bilateral ankle and foot 12/02/2018 FINDINGS: BONES:Acute, oblique fracture of the fifth metatarsal diaphysis without intra-articular extension; 2.5 mm dorsal medial displacement. Old, fracture/dislocation of the fourth digit middle phalanx; unchanged. Marked degenerative joint disease of the first metatarsophalangeal joint. Unremarkable ankle joint. SOFT TISSUES:Mild lateral soft tissue swelling. EFFUSION:None visible. OTHER: Negative. IMPRESSION: 1. Acute, mildly displaced oblique fracture of the fifth metatarsal diaphysis. 2. Stable, old irregularly healed fracture of the fourth digit middle phalanx. Electronically authenticated by: JEREMIAH KOHLER Date: 2022-02-07 14:05[facility]02-02-2022 Evaluation note* Encounter Date Diagnosis Assessment Notes Treatment Notes Treatment Clinical Notes Mar, Sore throat (ICD-10 - J02.9) Mar, COVID-19 (ICD-10 - U07.1) Drink plenty fluids, get plenty of rest. Take the Zithromax and prednisone as prescribed until gone. You must quarantine for 5 days. Follow-up with your family physician if no improvement in 2 to 3 days. Go to the ER for worsening symptoms or concern Mar, Contact with and (suspected) exposure to other viral communicable diseases (ICD-10 - Z20.828) Mar, Other Additional time spent conducting pre-visit phone call, screening for symptoms, instructions on social distancing, application and removal of PPE, and cleaning of examination room, equipment and supplies was preformed. Patient education given for testing methodology and results. Patient care instructions given in writting by [facility] Care At Home document. [facility] [employer] Other Evaluation noteNo assessment information available [facility] Work Phone: Evaluation noteNo InformationNortGuthrie [facility] [employer] Other Evaluation note* Diagnosis Left hip pain- Primary Pain in joint, pelvic region and thigh Left hip pain Pain in joint, pelvic region and thigh [facility] Primary osteoarthritis of left hip- Primary [facility] Diagnosis Onset Date Resolution Status Acute bacterial sinusitis no neactive Respiratory infection noneac tive Cough acute [facility] Work Phone: History general Narrative - Reported* Type Description Date Surgical History left breast biopsy Surgical History left hip reservicing Surgical History tubal ligation Hospitalization History see above [facility] Other [facility] Narrative - Reported* Type Description Date Medical History left proximal tibia fracture and right 5th metatarsal fracture Surgical History left breast biopsy Surgical History left hip reservicing Surgical History tubal ligation Surgical History Foot Surgery left Hospitalization History see above [facility] Other InstructionsNot on filedocumented in this encounter [facility] SystemInstructionsNot on filedocumented in this encounter [facility] [employer] [facility] Assessments Diagnosis Visit for screening mammogra m Diagnosis Visit for screening mammogram Summary Purpose Family History No Family History Records Found Relationship Condition Age at Onset Recorded Date/T kole father Unknown mother Unknown Advance Directives No Advanced Directives Records FoundDocuments on File Type Date Recorded 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 Advance Directives and Livin g Will 10/25/2019 10:51 AM Documents on File Type Date Recorded 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 Advance Directives and Livin g Will 10/25/2019 10:51 AM Advance Directive Response Recorded Date/ Time Advance Directives No March 16, 2022 11:57am Advance Directive Response Recorded Date/ Time Advance Directives No March 16, 2022 12:57pm Hospital Course Note EMERGENCY DEPARTMENT DISCHAR GE SUMMARY PATIENT NAME:CHACHO BONNER AGE: 68 Years SEX: Female PHONE:[id number] DOS: 11/03/2018 10:01:00 : 1950 ATTENDING PHYSICIAN:Dany Parra MD PCP: Physician, PCP Unknown CHIEF COMPLAINT: Right hip pain Allergies NKA Problems Active No Chronic Problems DISCHARGE DIAGNOSIS: DISCHARGE INSTRUCTIONS: Work Release 3 days no restrictions - [facility] (Custom); Hip Pain ED PHYSICIAN DOCUMENTATION: History of Present Illness The patient is a?68-year-old female with?history of prior right hip resurfacing who presents to the ED for evaluation of right hip pain. ?She reports that?3 weeks ago she sustained a mechanical fall to the right hip?landing directly over the lateral hip. ?She denies any immediate pain but states that about a week?later she developed pain?posterior hip and into the groin area. ?She denies any significant radiation. ?Denies any head trauma, LOC, neck pain, chest pain, dizziness, palpitations prior to the fall (more content not included)... Reason for Referral Status Reason Specialty Diagnoses / Procedures Referred By Contact Referred To Contact Pending Review Radiology Diagnoses Visit for screening mammogram Procedures Mammography Screening Amaury Bilateral Charlene Cruz MD [address] [place] [address] Chief Complaint and Reason for Visit Chief Complaint S82.192D S92.351D Chief Complaint S82.192D S92.351D S82.192D S92.351D Chief Complaint Cough, Congestion R05.9 - Cough, unspecified Chief Complaint Cough, Congestion R05.9 - Cough, unspecified Cough, congestion, seen last Sunday Reason for Visit Acute bacterial sinu sitis Respiratory infection Cough Additional Source Comments INFORMATION SOURCE (unrecogn ized section and content) DATE CREATED AUTHOR 11/05/2018 [facility] DATE CREATED AUTHOR AUTHOR'S ORGANIZ ATION 12/11/2018 [facility] DATE CREATED AUTHOR AUTHOR'S ORGANIZ ATION 02/07/2022 [facility] DATE CREATED AUTHOR AUTHOR'S ORGANIZ ATION 01/02/2023 [facility] DATE CREATED AUTHOR AUTHOR'S ORGANIZ ATION 04/12/2023 [facility] DATE CREATED AUTHOR AUTHOR'S ORGANIZ ATION 06/02/2023 [facility] DATE CREATED AUTHOR AUTHOR'S ORGANIZ ATION 09/04/2023 [facility] DATE CREATED AUTHOR AUTHOR'S ORGANIZ ATION 09/18/2023 [facility] DATE CREATED AUTHOR AUTHOR'S ORGANIZ ATION 12/08/[address] [facility] Reason for Visit (unrecogniz ed section and content) Status Reason Specialty Diagnoses / Procedures Referred By Contact Referred To Contact Pending Review Radiology Diagnoses Visit for screening mammogram Procedures Mammography Screening Amaury Bilateral Charlene Cruz MD [address] [place] [address] Reason Comments New Patient Left Hip Pain - XR 1 Care Teams (unrecognized sec tion and content) Team Status: Active Member Role Status Dates Charlene Cruz MD Primary Care Provider Active Team Status: Inactive Member Role Status Dates Charlene Cruz MD Primary Care Provider Active Darrius Moreland DO Attending Provider Active Customer Service Consultant Relationship Specialty Start Date End Date Charlene Cruz MD [address] [place] [address] PCP - [facility] 02/03/23 Customer Service Consultant Relationship Specialty Start Date End Date Charlene Cruz MD [address] [place] [address] PCP - [facility] 02/03/23 Team Status: Inactive Member Role Status Dates Charlene Cruz MD Primary Care Provider Active Start: November 30, 2023 End: November 30, 2023 Lazara Curran APRN Attending Provider Active Sta rt: November 30, 2023 End: November 30, 2023 Team Status: Active Member Role Status Dates Charlene Cruz MD Primary Care Provider Active Start: November 30, 2023 Lazara Curran APRN Attending Provider Active Sta rt: November 30, 2023 Team Status: Inactive Member Role Status Dates Charlene Cruz MD Primary Care Provider Active Start: December 07, 2023 End: December 07, 2023 Sharmaine Alfonso APRN Attending Provider Active Start: December 07, 2023 End: December 07, 2023 Goals (unrecognized section and content) Goals may be documented in a n alternate section FOR RECORDS PERTAINING TO PATIENTS WHO ARE OR HAVE BEEN ENROLLED IN A CHEMICAL DEPENDENCY/SUBSTANCEABUSE PROGRAM, SOME INFORMATION MAY BE OMITTED. This clinical summary was aggregated from multiple sources. Caution should be exercised in using it in the provision of clinical care. This summary normalizes information from multiple sources, and as a consequence, information in this document may materially change the coding, format and clinical context of patient data. In addition, data may be omitted in some cases. CLINICAL DECISIONS SHOULD BE BASED ON THE PRIMARY CLINICAL RECORDS. [facility] [employer] [facility]. provides no warranty or guarantee of the accuracy or completeness of information in this document.
--- NOTE | 2023-12-16 08:23 | XR_ITS ---
[address] [address] Patient Name: CHACHO TOBIAS MRN: [id number] date: 1950 Sex: F Assigned Patient Location: ER Current Patient Location: ER Accession/Order Number: [id number] Exam Date: 12/16/2023 08:38 Report Date: 12/16/2023 09:08 At the request of: VIRGINIA JARA Procedure: XR chest 1V EXAM: XR chest 1V INDICATION: cough for a month. COMPARISON: None. TECHNIQUE: Single frontal view of the chest FINDINGS: Normal cardiomediastinal contours. No acute infiltrative process. No pleural effusion or pneumothorax. No acute osseous abnormality. XR/XR chest 1V IMPRESSION: No acute cardiopulmonary process. Electronically authenticated by: ARINAA CROW Date: 12/16/2023 09:08
[2023-12-16 08:48] LABS: Basophils Absolute Auto 0.1 10^3/uL (0.0-0.1); Basophils Percent Auto 0.6 % (0.2-2.0); Eosinophils Absolute Auto 0.3 10^3/uL (0.0-0.7); Eosinophils Percent Auto 2.4 % (0.9-7.0); Hemoglobin 13.4 g/dL (12.0-16.0); Immature Granulocytes Abs Auto 0.03 10^3/uL (0.00-0.03); Immature Granulocytes Pct Auto 0.3 % (0.0-0.5); Lymphocytes Absolute Auto 1.1 10^3/uL (1.2-3.8); Lymphocytes Percent Auto 9.9 % (20.5-60.0); Mean Corpuscular HGB Conc 33.5 g/dL (29.9-35.2); Mean Corpuscular Hemoglobin 30.8 pg (26.7-34.0); Mean Platelet Volume 9.5 fL (9.5-13.5); Monocytes Absolute Auto 0.6 10^3/uL (0.3-0.8); Monocytes Percent Auto 5.7 % (1.7-12.0); Neutrophils Absolute Auto 8.8 10^3/uL (1.4-6.5); Neutrophils Percent Auto 81.1 % (43.0-75.0); Platelet Count 203 10^3/uL (150-450); Red Blood Count 4.35 10^6/uL (4.20-5.40); Red Cell Distribution Width 13.7 % (11.0-15.0); White Blood Count 10.8 10^3/uL (4.0-11.0)
[2023-12-16 09:01] LABS: Alanine Aminotransferase 22 U/L (14-59); Albumin Globulin Ratio 1.1; Albumin Level 3.4 g/dL (3.4-5.0); Alkaline Phosphatase 110 U/L (46-116); Anion Gap 15.5; Aspartate Amino Transferase 26 U/L (15-37); BUN Creatinine Ratio 14.8; Bilirubin Total 0.7 mg/dL (0.2-1.0); Calcium 9.6 mg/dL (8.5-10.1); Chloride 109 mmol/L (98-107); Estimated GFR (African America >60 (>=60 mL/min/1.73m^2); Estimated GFR (Non-African Ame >60 (>=60 mL/min/1.73m^2); Globulin 3.2 g/dL; Glucose 113 mg/dL (74-106); Potassium 3.5 mmol/L (3.5-5.1); Sodium 146 mmol/L (136-145); Total Protein 6.6 g/dL (6.4-8.2)
--- NOTE | 2023-12-16 09:54 | ED.URI1 ---
HPI - URI/Sore Throat General Chief Complaint: Upper Respiratory Infection Stated Complaint: SORE THROAT EARACHE BODY ACHES Time Seen by Provider: 12/16/23 08:14 Source: patient Limitations: no limitations History of Present Illness HPI Narrative: The patient is coming to the ER with a 1 month history of being sick, she apparently was initially October for started having some sore throat associated with cough treated initially with Augmentin after that the patient continued to cough she was also treated with Medrol Dosepak and doxycycline by urgent care and outpatient The patient still have a cough she mentioned that it gets worse whenever she is asleep sometimes and sometimes wake her up from sleep She also mentioned that it gets worse early in the morning The patient denies any difficulty breathing nausea vomiting or any other concerns Related Data Home Medications ?Medication ?Instructions ?Recorded ?Confirmed No Known Home Medications 12/16/23 12/16/23 Allergies Allergy/AdvReac Type Severity Reaction Status Date / Time No Known Drug Allergies Allergy Verified 02/04/23 09:48 Review of Systems ROS Status of ROS 10 or more systems reviewed and unremarkable except as noted in history and below PFSH PFS Social History Smoking status: Never smoker Little interest or pleasure in doing things: not at all Feeling down, depressed, or hopeless: not at all Exam Narrative Exam Narrative: Nurses notes and vital signs reviewed and patient is not hypoxic. General: Well-appearing and in no apparent distress. Skin: Warm, dry, no pallor noted. No rash. Head: Normocephalic, atraumatic. Neck: Supple, non-tender. Eye: Pupils are equal, round and EOMI. No scleral icterus. Ears, Nose, Mouth, and Throat: TM are clear, no nasal mucosal hypertrophy. Oral mucosa is moist, no posterior oropharynx erythema, uvula is mid-line Cardiovascular: Regular Rate and Rhythm without murmur, gallop or rub. Respiratory: No accessory muscle use or respiratory distress. Lungs are clear to auscultation, no wheezing, rales or rhonchi Chest Wall: no tenderness Back: No midline thoracic or lumbar vertebral tenderness. No CVA tenderness Musculoskeletal: normal ROM, no calf or popliteal tenderness, no lower extremity edema/swelling GI: Abdomen is soft, non-distended. Normal bowel sounds. No masses appreciated. No tenderness to palpation. No rebound, guarding, or rigidity noted. Neurological: A&O x4. No cranial nerve dysfunction observed. No truncal ataxia. Moves all extremities. Sensation intact. Psychiatric: Cooperative and interactive. Normal mood and affect. Constitutional Vital Signs, click to edit/add: Last Vital Signs Temp 98.8 F 12/16/23 08:04 Pulse 96 H 12/16/23 08:04 Resp 16 12/16/23 08:04 BP 160/90 H 12/16/23 08:04 Pulse Ox 97 12/16/23 08:04 O2 Del Method Room Air 12/16/23 08:04 Course Vital Signs Vital signs: Vital Signs Temperature 98.8 F 12/16/23 08:04 Pulse Rate 96 H 12/16/23 08:04 Respiratory Rate 16 12/16/23 08:04 Blood Pressure 160/90 H 12/16/23 08:04 Pulse Oximetry 97 12/16/23 08:04 Oxygen Delivery Method Room Air 12/16/23 08:04 Temperature 98.8 F 12/16/23 08:04 Pulse Rate 96 H 12/16/23 08:04 Respiratory Rate 16 12/16/23 08:04 Blood Pressure 160/90 H 12/16/23 08:04 Pulse Oximetry 97 12/16/23 08:04 Oxygen Delivery Method Room Air 12/16/23 08:04 MDM - URI/Sore Throat MDM Narrative Medical decision making narrative: The patient was treated at least twice with antibiotics with doxycycline and Augmentin and Medrol Dosepak as well Right now the patient chest x-ray showed no acute pathology and CBC and chemistry showed no acute pathology as well The patient will be treated supportively with humidified air and follow-up with outpatient The patient is to follow up with primary care physician in next 2-3 days or to return to the emergency department should any of the signs or symptoms worsen or new symptoms develop. The patient agrees with the following Diagnosis and Treatment plan and the patient will be discharged home. Lab Data Labs: Lab Results 12/16/23 Range/Units 08:42 WBC 10.8 (4.0-11.0) 10^3/uL RBC 4.35 (4.20-5.40) 10^6/uL Hgb 13.4 (12.0-16.0) g/dL Hct 40.0 (36.0-48.0) % MCV 92.0 (81.0-99.0) fL MCH 30.8 (26.7-34.0) pg MCHC 33.5 (29.9-35.2) g/dL RDW 13.7 (11.0-15.0) % Plt Count 203 (150-450) 10^3/uL MPV 9.5 (9.5-13.5) fL Neut % (Auto) 81.1 H (43.0-75.0) % Lymph % (Auto) 9.9 L (20.5-60.0) % [place] % (Auto) 5.7 (1.7-12.0) % Eos % (Auto) 2.4 (0.9-7.0) % Baso % (Auto) 0.6 (0.2-2.0) % Neut # (Auto) 8.8 H (1.4-6.5) 10^3/uL Lymph # (Auto) 1.1 L (1.2-3.8) 10^3/uL [place] # (Auto) 0.6 (0.3-0.8) 10^3/uL Eos # (Auto) 0.3 (0.0-0.7) 10^3/uL Baso # (Auto) 0.1 (0.0-0.1) 10^3/uL Abs Immat Gran (auto) 0.03 (0.00-0.03) 10^3/uL Imm/Tot Granulo (auto) 0.3 (0.0-0.5) % Sodium 146 H (136-145) mmol/L Potassium 3.5 (3.5-5.1) mmol/L Chloride 109 H (98-107) mmol/L Carbon Dioxide 25.0 (21.0-32.0) mmol/L Anion Gap 15.5 BUN 12.0 (7.0-18.0) mg/dL Creatinine 0.81 (0.55-1.02) mg/dL Est GFR ( Amer) >60 (>=60 mL/min/1.73m^2) Est GFR (Non-Af Amer) >60 (>=60 mL/min/1.73m^2) BUN/Creatinine Ratio 14.8 Glucose 113 H (74-106) mg/dL Calcium 9.6 (8.5-10.1) mg/dL Total Bilirubin 0.7 (0.2-1.0) mg/dL AST 26 (15-37) U/L ALT 22 (14-59) U/L Alkaline Phosphatase 110 (46-116) U/L Total Protein 6.6 (6.4-8.2) g/dL Albumin 3.4 (3.4-5.0) g/dL Globulin 3.2 g/dL Albumin/Globulin Ratio 1.1 Discharge Plan Discharge Chief Complaint: Upper Respiratory Infection Clinical Impression: Bronchitis, Laryngitis Patient Disposition: Home, Self-Care Time of Disposition Decision: 09:35 Condition: Good Mode of Transportation: Private Vehicle Prescriptions / Home Meds: No Action No Known Home Medications Print Language: Italian Instructions: Laryngitis (ED), Acute Bronchitis (ED) Referrals: ELMA DANIELSON [Primary Care Provider] - 1 week Discharge Date/Time: 12/16/23 09:40
== END 2023-12-16 09:40 | disposition home or self-care (01) ==
PROVIDERS: Emergency Provider Emergency Medicine; PCP Family Medicine
DX: J40 Bronchitis, not specified as acute or chronic (principal); J04.0 Acute laryngitis
CPT/HCPCS: 36415; 71045; 80053; 85025; 99284

== ENCOUNTER 2024-03-27 10:04 | Emergency (ER) | payer MEDICARE, SELFPAY ==
[2024-03-27] VITALS (17 sets, daily range): BP systolic 137–159; BP diastolic 80–89; PULSE 75–126; TEMP 36.6; O2SAT 96–99; BMI 22.1
--- OUTSIDE RECORDS SUMMARY | 2024-03-27 10:12 | XMS_ITS | CCD ---
Author Organization [facility] Care Team Providers Care Line Staker Name Role Phone Elma Cruz Unavailable FRANCESCO PIERRE Admitting Unavailable MARYLOUANDER, FRANCESCO Attending Unavailable SEAN CALVILLO V Consulting Unavailable FRANCESCO PIERRE Consulting Unavailable FRANCESCO PIERRE Admitting Unavailable MARYLOUANDER, FRANCESCO Attending Unavailable ELMA CRUZ A Primary Care Unavailable GABBY, FRANCESCO Admitting Unavailable MARYLOUANDER, FRANCESCO Attending Unavailable CRUZ, ELMA A Primary Care Unavailable Elma Cruz A Primary Care Provider Lesa Mack Unavailable DR ELMA CRUZ A Primary Care Unavailable ALEENA, DR GUADARRAMA Admitting Unavailable ALEENA, DR GUADARRAMA Attending Unavailable EDITA, DR JEREMIAH Connolly Consulting Unavailable RAS CABEZAS Consulting Unavailable Darrius Moreland Unavailable MD Elma Cruz A Primary Care Provider DO Darrius Moreland Attending Provider MD Elma Cruz A Primary Care Provider DO Darrius Moreland A Attending Provider Sharmaine Alfonso Unavailable Romi Toth Unavailable ELMA CRUZ Referring Unavailable CRUZ, ELMA A Attending Unavailable CRUZ, ELMA A Primary Care Unavailable BRITT HINSON Attending Unavailable CRUZ, ELMA A Primary Care Unavailable CRUZ, ELMA A Attending Unavailable CRUZ, ELMA A Referring Unavailable CRUZ, ELMA A Primary Care Unavailable JESUS SALAS Attending Unavailabl e ELMA CRUZ A Referring Unavailable CRUZ, ELMA A Primary Care Unavailable JESUS SALAS Referring Unavailabl e CRUZ, ELMA A Primary Care Unavailable TIFFANIEENMACJESUS EPSTEIN A Referring Unavailabl e CRUZ, ELMA A Primary Care Unavailable JESUS SALAS Admitting Unavailabl e ASSENMACHERJESUS Attending Unavailabl e ASSENMACHER, JESUS A Referring Unavailabl e CRUZ, ELMA A Primary Care Unavailable SOHAIL KAISER Attending Unavailable CRUZ, ELMA A Primary Care Unavailable TIFFANIEENJESUS RASHEED Attending Unavailabl e ASSENMACJESUS EPSTEIN A Referring Unavailabl e CRUZ, ELMA A Primary Care Unavailable TIFFANIEENMACJESUS EPSTEIN A Attending Unavailabl e CRUZ, ELMA A Referring Unavailable CRUZ, ELMA A Primary Care Unavailable ASSENMAC, JESUS A Referring Unavailabl e CRUZ, ELMA A Primary Care Unavailable ASSENMAC, JESUS A Attending Unavailabl e CRUZ, ELMA A Referring Unavailable CRUZ, ELMA A Primary Care Unavailable JOEL MIDDLETON Attending Unavailable ERUM, ELMA A Referring Unavailable ERUM, ELMA A Primary Care Unavailable MD Elma Cruz Primary Care Provider [phone] BEBO Curran Attending Provider [phone] Elma Cruz Primary Care Unavailable Lazara Curran Attending Unavailable Lazara Curran Admitting Unavailable ERUM, ELMA A Referring Unavailable CRUZ, ELMA A Attending Unavailable ERUM, ELMA A Primary Care Unavailable Medications Current Medications Medication Drug Class(es) [...] 12:00am Start: 01-27-2020 take 1 capsule by [facility] every twelve hours Doxycycline Monohydrate 100 MG [...] 04-20-2022 Medrol 4 MG as directed Orally 16 Mar, 2023 Active Start: 01-27-2020 methylPREDNISo lone 4 MG [...] Problem Classification Problem Date Documented Date Episodic/Chronic Fracture of lower limb (4 sources) Displaced [...] closed fracture with routine healing] Episodic Osteoarthritis (3 sources) Primary osteoarthritis, left ankle and foot; Translations: [Primary osteoarthritis, right ankle and foot] Onset: 12-06-2018 Chronic Osteoporosis (1 source) Age-related osteoporosis without [...] classified] 11-30-2023 Episodic Other non-traumatic joint disorders (1 source) Arthropathy; 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] Onset: 09-20-2020 Chronic Other non-traumatic joint disorders (1 source) Pain in right ankle and joints of right foot; Translations: [PAIN IN RIGHT ANKLE] Onset: 12-06-2018 Episodic Other non-traumatic joint disorders (1 source) Pain in left ankle and joints of left foot; Translations: [PAIN IN LEFT ANKLE] Onset: 12-06-2018 Episodic Other upper respiratory infections (3 sources) [...] of left foot, initial encounter Episodic Unclassified (5 sources) Breast neoplasm screening status; Translations: [Encounter [...] communicable diseases Onset: 03-09-2021 Resolved: 03-09-2021 Episodic Other connective tissue disease (1 source) Foot [...] Test Name Value Interpretation Reference Range Facility MM SCREENING AMAURY BILATERALo n 12-22-2023 MM SCREENING AMAURY BILATERAL EXAMINATION: SCREENING DIGITAL BILATERAL MAMMOGRAM WITH TOMOSYNTHESIS 12/22/2023 TECHNIQUE: Screening mammography of the bilateral breasts was performed with tomosynthesis. 2D standard and 3D tomosynthesis combination imaging performed through both breasts in the MLO and CC projection. Computer aided detection was utilized in the interpretation of this exam. COMPARISON: 10/30/2020, 12/23/2022. HISTORY: Screening. FINDINGS: There are scattered areas of fibroglandular density. There is no new dominant mass, suspicious microcalcification, or area of architectural distortion. IMPRESSION: No mammographic evidence of malignancy. BIRADS: BIRADS - CATEGORY 1 Negative, no evidence of malignancy. Normal interval follow-up is recommended in 12 months. OVERALL ASSESSMENT - NEGATIVE A letter of notification will be sent to the patient regarding the results. [facility], along with the National Comprehensive Cancer Network and the [place] [employer] recommend annual screening mammograms for women age 40 and older. Workstation ID: [id number] Dictated by: ROSALIO FITZPATRICK on SunDec 24, 2023 9:54:40 AM EST Transcribed by: ROSALIO FITZPATRICK on SunDec 24, 2023 9:54:40 AM EST Finalized by: ROSALIO FITZPATRICK on SunDec 24, 2023 9:54:40 AM EST Normal [facility] XR chest 2V*on 11-30-2023 XR chest 2V* [facility] Main [place] [address] [place] [address] XRay Report Signed Patient: Chacho Bonner MR#: [id number] 38 : 1950 Acct:[id number] Age/Sex: 73 / F ADM Date: 11/30/23 [facility] Attending Dr: Lazara Curran [employer] TE[employer]ER Copies to: Lazara Curran APRN Ordering Provider: [...] No acute cardiopulmonary pathology. Impression dictated by: oRb Cardoso M.D.11/30/2023 2:30 PM Dictation Location: [place] [address] Transcribed By: [facility] 11/30/23 1430 Dictated By: Rob Cardoso II, MD 11/30/23 1429 Signed By: 11/30/23 1430 Normal [facility] COMPLETE BLOOD COUNTon 06-25 Erythrocyte distribution width (RBC) [Ratio] 14.0 % Normal 11.5-15.0 [facility] Comment on above: Performed By: #### CBC #### [facility] ([id number]) [address] [facility] [place] [address] Hematocrit (Bld) [Volume fraction] 39.6 % Normal 35-47 [facility] Comment on above: Performed By: #### CBC #### [facility] ([id number]) [address] [facility] [place] [address] Hemoglobin (Bld) [Mass/Vol] 13.1 g/dL Normal 11.7-15.5 [facility] Comment on above: Performed By: #### CBC #### [facility] ([id number]) [address] [place] [address] MCH (RBC) [Entitic mass] 30.3 pg Normal 27-34 [facility] Comment on above: Performed By: #### CBC #### [facility] ([id number]) [address] [place] [address] MCHC (RBC) [Mass/Vol] 33.0 g/dL Normal 32-36 [facility] Comment on above: Performed By: #### CBC #### [facility] ([id number]) [address] [place] [address] MCV (RBC) [Entitic vol] 92 fL Normal 80-100 [facility] Comment on above: Performed By: #### CBC #### [facility] ([id number]) [address] [place] [address] Platelet mean volume (Bld) [Entitic vol] 7.9 fL Normal 7-12 [facility] Comment on above: Performed By: #### CBC #### [facility] ([id number]) [address] [place] [address] Platelets (Bld) [#/Vol] 249 10*3/uL Normal 150-450 [facility] Comment on above: Performed By: #### CBC #### [facility] ([id number]) [address] [place] [address] RBC COUNT 4.31 X10E12/L Normal 3.80-5.20 [facility] Comment on above: Performed By: #### CBC #### [facility] ([id number]) [address] [place] [address] WBC (Bld) [#/Vol] 7.6 10*3/uL Normal 4.0-11.0 [facility] Comment on above: Performed By: #### CBC #### [facility] ([id number]) [address] [place] [address] DEXA SCAN CENTRAL SKELETALon 05-31-2023 DEXA SCAN [...] Ceballos MD on 05/31/2023 5:23 PM Normal [facility] COVID + FLU Quick Testingon 01-16-2023 SARS-CoV-2 (COVID-19) RNA LUZ MARINA+probe Ql (Unsp spec) Negative [employer] Other COVID + FLU Quick Testing Negative [employer] Other MM SCREENING AMAURY BILATERALo n 12-23-2022 [...] sent to the patient regarding the results. [facility], along with the National Comprehensive Cancer Network, the [place], and [facility], recommend annual screening mammograms for women age 40 and older. Workstation ID: [id number] Dictated by: CHRISTIE HANKS on SunDec 25, 2022 4:14:41 PM EST Transcribed by: CHRISTIE HANKS on SunDec 25, 2022 4:14:41 PM EST Finalized by: CHRISTIE HANKS on SunDec 25, 2022 4:14:41 PM EST Normal [facility] XR foot RT min 3V*on 023 XR foot RT min 3V* [facility] [employer] Other XR foot RT min 3V* [facility] [address] [place] [employer] Other XR foot RT min 3V* [address] [facility] [employer] Other XR foot RT min 3V* TIMI Hernandez [address] [employer] Other XR foot RT min 3V* XRay Report [employer] Other XR foot RT min 3V* Signed [employer] Other XR foot RT min 3V* Patient: Chacho Bonner MR#: [id number] [employer] Other XR foot RT min 3V* 38 [employer] Other XR foot RT min 3V* : 1950 Acct:[id number] [employer] Other XR foot RT min 3V* Age/Sex: 71 / F ADM Date: 04/05/22 [employer] Other XR foot RT min 3V* Loc: [facility] Room: Type: [facility] [employer] Other XR foot RT min 3V* Attending Dr: Darrius Moreland DO [employer] Other XR foot RT min 3V* Copies to: Darrius Moreland DO [employer] Other XR foot RT min 3V* Ordering Provider: Darrius Moreland DO [employer] Other XR foot RT min 3V* Date of Service: 04/05/22 [employer] Other XR foot RT min 3V* XR/XR knee LT 2V: Other closed fracture of proximal end of left tibia [employer] Other XR foot RT min 3V* with Tipp24 Other XR foot RT min 3V* ([id number]) XR/XR foot RT min 3V*: Other closed fracture of proximal end of left tibia with Tipp24 Other XR foot RT min 3V* LEFT KNEE - 2 views right foot 3 views [employer] Other XR foot RT min 3V* CLINICAL HISTORY: Follow-up left proximal tibial fracture. Follow-up right fifth metatarsal fracture [employer] Other XR foot RT min 3V* COMPARISON: Left knee and right foot 03/08/2022 [employer] Other XR foot RT min 3V* FINDINGS: [employer] Other XR foot RT min 3V* Left knee: [employer] Other XR foot RT min 3V* Interval sclerosis and callus formation involving the proximal fibular fracture consistent with [employer] Other XR foot RT min 3V* healing response. No change in alignment. Degenerative changes involving the left knee joint. No [employer] Other XR foot RT min 3V* knee joint effusion. [employer] Other XR foot RT min 3V* Right foot: Fifth metatarsal fracture grossly unchanged alignment and healing compared to the prior [employer] Other XR foot RT min 3V* study. No additional fractures are seen. Degenerative changes involving the first MTP joint without [employer] Other XR foot RT min 3V* bony erosion. Plantar spurring. [employer] Other XR foot RT min 3V* XR/XR knee LT 2V [employer] Other XR foot RT min 3V* IMPRESSION: [employer] Other XR foot RT min 3V* HEALING PROXIMAL FIBULAR FRACTURE. [employer] Other XR foot RT min 3V* NO SIGNIFICANT CHANGE IN RIGHT FIFTH METATARSAL FRACTURE FINDINGS. [employer] Other XR foot RT min 3V* Impression dictated by: Jesus Fu Jr., D.OBrenda04/05/2022 4:51 PM [employer] Other XR foot RT min 3V* Dictation Location: [place] [address] [employer] Other XR foot RT min 3V* Transcribed By: PARVEEN 04/05/22 1651 [employer] Other XR foot RT min 3V* Dictated By: Jesus Fu Jr, DO 04/05/22 1645 [employer] Other XR foot RT min 3V* Signed By: [employer] Other XR foot RT min 3V* 04/05/22 1651 [employer] Other XR foot RT min 3V*on 023 XR foot RT min 3V* [facility] [employer] Other XR foot RT min 3V* [facility] [place] [employer] Other XR foot RT min 3V* [address] [place] [address] [employer] Other XR foot RT min 3V* TIMI [place] [address] [employer] Other XR foot RT min 3V* XRay Report [employer] Other XR foot RT min 3V* Signed [employer] Other XR foot RT min 3V* Patient: Chacho Bonner MR#: [id number] [employer] Other XR foot RT min 3V* : 1950 Acct:[id number] [employer] Other XR foot RT min 3V* Age/Sex: 71 / F ADM Date: 03/08/22 [employer] Other XR foot RT min 3V* Loc: [facility] Room: Type: REG CLI [employer] Other XR foot RT min 3V* Attending Dr: Darrius Moreland DO [employer] Other XR foot RT min 3V* Copies to: Darrius Moreland DO [employer] Other XR foot RT min 3V* Ordering Provider: Darrius Moreland DO [employer] Other XR foot RT min 3V* Date of Service: 03/08/22 [employer] Other XR foot RT min 3V* XR/XR foot RT min 3V*: Other closed fracture of proximal end of left [employer] Other XR foot RT min 3V* tibia with rou [employer] Other XR foot RT min 3V* 3 viewsRIGHT foot plain film [employer] Other XR foot RT min 3V* COMPARISON:02/07/22 [employer] Other XR foot RT min 3V* HISTORY:Status post RIGHT 5th metatarsal fracture [employer] Other XR foot RT min 3V* Continued healing of the 5th metatarsal fracture identified. Bony alignment unchanged. [employer] Other XR foot RT min 3V* XR/XR foot RT min 3V* [employer] Other XR foot RT min 3V* IMPRESSION:Healing fracture [employer] Other XR foot RT min 3V* Impression dictated by: Stanley Borja M.D.03/08/2022 1:52 PM [employer] Other XR foot RT min 3V* Dictation Location: [place] [address] [employer] Other XR foot RT min 3V* Transcribed By: PARVEEN 03/08/22 [facility] [employer] Other XR foot RT min 3V* Dictated By: Stanley Borja DO 03/08/22 [facility] [employer] Other XR foot RT min 3V* Signed By: [employer] Other XR foot RT min 3V* 03/08/22 [facility] [employer] Other XR knee LT 2Von 03-08-2022 XR knee LT 2V XR/XR knee LT 2V: Other closed fracture of proximal end of left tibia [employer] Other XR knee LT 2V with rou [employer] Other XR knee LT 2V [address] ain film [employer] Other XR knee LT 2V HISTORY:Status post LEFT proximal fibular fracture [employer] Other XR knee LT 2V Continued healing of the proximal fibular fracture identified. Bony alignment unchanged.No joint [employer] Other XR knee LT 2V effusion identified. N what3words Other XR knee LT 2V XR/XR knee LT 2V [employer] Other XR knee LT 2V IMPRESSION:Healing fracture. [employer] Other XR knee LT 2V Impression dictated by: Stanley Borja M.D.03/08/2022 1:54 PM [employer] Other XR knee LT 2V Transcribed By: PWS 03/08/22 [facility] [employer] Other XR knee LT 2V Dictated By: Stanley Borja DO 03/08/22 [facility] [employer] Other XR knee LT 2V 03/08/22 [facility] Bench Other XR ANKLE MARVIN MIN 3 VIEWSon 1 XR ANKLE MARVIN MIN 3 VIEWS Patient: CHACHO BONNER Exam Date: 12/02/2018 : 1950 Gender:F Ordering : DR. FRANCESCO PIERRE D.P.MBrenda Admission #: [id number] Family : Order #: [id number] CLICK HERE TO VIEW EXAM RADIOLOGY REPORT [...] Sean Calvillo M.D. on 12/02/2018 at 15:05 [facility] XR FOOT MARVIN MIN 3 VIEWSon Bilirubin [Mass/Vol] Patient: CHACHO BONNER Exam Date: 12/02/2018 : 1950 Gender:F Ordering : DR. FRANCESCO PIERRE DBrendaPCarlos Admission #: [id number] Family : Order #: [id number] CLICK HERE TO VIEW EXAM RADIOLOGY REPORT PROCEDURE: RADIOGRAPH FOOT BILATERAL MIN 3 VIEWS COMPARISON: XR FOOT LT MIN 3 VIEWS, 09/28/2017. INDICATIONS: Chronic bilateral foot pain, subsequent imaging for left, initial for right RIGHT FINDINGS: BONES: No acute fracture or dislocation. Zuxn-hl-vqfg articulation of the 1st metatarsophalangeal joint. Enthesopathic spurring of the calcaneus SOFT TISSUES: Negative. No visible soft tissue swelling. OTHER: Negative. LEFT FINDINGS: BONES: No acute fracture or dislocation. Kiwp-em-qalv articulation with remodeling 1st metatarsophalangeal joint. Enthesopathic [...] Sean Calvillo M.D. on 12/02/2018 at 15:[address] [facility] [address] Pelvis w/o Contraston CT Pelvis [...] abnormality in the right hip or pelvis. [facility] thanks you for the opportunity to care for your patient. Workstation ID: [id number] FINAL REPORT Dictated By: Jefferson Thompson MD 11/03/2018 12:16 Assigned Physician: Jefferson Thompson MD Reviewed and Electronically Signed By: Jefferson Thompson MD 11/03/2018 12:19 Transcribed by: HUBERT 11/03/2018 12:16 Technologist: KARL Camarena [facility] ED Pat Eduon 11-03-2018 [place] [address] Emergency Department Discharge Instructions CHACHO BONNER, Please provide this information to your Primary Care/Specialist Name: MICHELINEPATRICECHACHO Current Date : 11/03/2018 13:14:37 : 1950 Primary Care Physician: Physician, PCP Unknown Diagnosis : Follow-Up Instructions: Felisha BONNER [...] [facility] Name CHACHO BONNER MRN (COL)-[id number] PLEASE READ THE FOLLOWING REGARDING YOUR MEDICATIONS [...] doses are changed, or new medications (including bgor-qzz-yrthbxa products) are added. If you have any [...] UNTIL YOU TALK TO YOUR DOCTOR None [place] [id number] Emergency Department Discharge Instructions Name: CHACHO BONNER Current Date: 11/03/2018 13:14:37 :1950 [facility]; Primary Physician: Physician, PCP Unknown We would like to thank you for choosing [facility] for your emergency medical needs. We examined [...] health of those around you. Call the [place] [employer] at 5-004-DEMO-[place] or the [place] [employer] at 5-170-TBT2342 for more information. High blood pressure: Your [...] deadly infections. Discuss this with your child's cripple chaser, or Public Health Department. Your family practice doctor can determine if you need pneumonia or flu vaccine. [facility] Department can be reached at . Substance Abuse Program: Concerns with addiction to alcohol, benzodiazepines (Ativan or Xanax) and Opiates (Heroin, Percocet, OxyContin, Methadone or Fentanyl)? [facility] offers an inpatient Substance Abuse Program to help treat the symptoms associated with medical detoxification of addictive substances. The new program offers care for non- adults (18 and older) looking to break the chain to addictive chemicals. The Substance Abuse Program is a voluntary inpatient admission and it starts with a pre-screening phone call to a social welfare research worker. During the call, goals and objectives for recovery and how the patient will transition to outpatient care will be established. Please call [phone] to get help today. Domestic Violence: If [...] suicide hotline, anytime day or night, at 1-219-825-GWUH. Pharmacy Information: Below is a list of 24 hour pharmacies that we are aware of. We suggest that you call the specific pharmacy for their hours before traveling to a location. Hours may vary on holidays. [facility] Pharmacy [facility] [address], [place] [phone] [address] [place], [place] [address] [phone] [address] [place], [place] [address] [phone] [address] [place], [place] [phone] [address] [place], [place] [phone] [address] [place], [place] [phone] [place] [address] [phone] Take all medications as directed. If you need prescription assistance, contact the following agencies: ?? Partnership for Prescription Assistance at or www.pparx.org ?? [facility] Best Rx at or www.[place]bestrx.org ?? www.Track the BetRx.com is a site with many valuable coupons Patient Education Materials CHACHO BONNER has been given the following patient education materials: [address] [address] Name: CHACHO BONNER : 1950 Current Date: 11/03/2018 13:14:36 Primary Care Provider Name: Physician, PCP Unknown, Physician Phone: Patient Education Materials CHACHO BONNER has been given the following patient education materials: [facility] Emergency Department [address] [place] [address] Work Release Form This notice verifies that [...] Document Reviewed: 09/18/2013 Elsevier Interactive Patient Education ?2016 [employer] Inc. Patient Signature Responsible Constitution Party Relationship to Patient Clinician Signature Date ><><><><><><><><><><><> <><><><><><><><><><><> Patient Visit Summary Signature CHACHO BONNER has been given the following list of patient education materials, prescriptions and follow-up instructions: MICHELINE Ryan JEANNE, have received the above patient education materials/instructions and have verbalized understanding: Date Time Patient Signature Date Time Provider Signature Normal [facility] XR Hip 2-3 Views RTon 2018 XR [...] pelvic bone fracture. IMPRESSION: No acute abnormality [facility] thanks you for the opportunity to care for your patient. Workstation ID: [id number] - [id number] FINAL REPORT Dictated By: Arron Boroks MD 11/03/2018 10:19 Assigned Physician: Arron Brooks MD Reviewed and Electronically Signed By: Arron Brooks MD 11/03/2018 10:22 Transcribed by: HUBERT 11/03/2018 10:19 Technologist: MANUEL Normal [facility] Mammography Screening Amaury B ilateralon 08-29-2017 Mammography Screening Amaury Bilateral Stable mammographic appearance without evidence of malignancy. Category 1 - Negative, no evidence of malignancy. Normal interval follow-up is recommended in 12 months. OVERALL ASSESSMENT - NEGATIVE A letter of notification will be sent to the patient regarding the results. [facility], along with the National Comprehensive Cancer Network, the [place] [employer], and [facility], recommend annual screening mammograms for women age 40 and older. MARGO/duran Workstation ID: [id number] Invalid Interpretation Code MobileGlobeI Pict [facility] Mammography Screening Amaury Bilateral EXAMINATION: MM [...] distortion are seen bilaterally. Invalid Interpretation Code FUJI SYNAPSE [facility] Vital Signs Date Time Vital Sign Value Performing Clinician Facility 12-07-2023 09:05-0400 Body height 162.56 cm MD Elma Cruz Work Phone: [facility] 12-07-2023 09:05-0400 Body mass index (BMI) [Ratio] 22.8 kg/m2 MD Elma Cruz Work Phone: [facility] 12-07-2023 09:05-0400 Body temperature 97.1 [degF] MD Elma Cruz Work Phone: [facility] 12-07-2023 09:05-0400 Body weight 60.55 kg MD Elma Cruz Work Phone: [facility] 12-07-2023 09:05-0400 Diastolic blood pressure 88 mm[Hg] MD Elma Cruz Work Phone: [facility] 12-07-2023 09:05-0400 Heart rate 80 /min MD Elma Cruz Work Phone: [facility] 12-07-2023 09:05-0400 Respiratory rate 18 /min MD Elma Cruz Work Phone: [facility] 12-07-2023 09:05-0400 SaO2% (BldA) [Mass fraction] 97 % MD Elma Cruz Work Phone: [facility] 12-07-2023 09:05-0400 Systolic blood pressure 155 mm[Hg] MD Elma Cruz Work Phone: [facility] 11-30-2023 13:41-0400 Body height 162.56 cm MD Elma Cruz Work Phone: [facility] 11-30-2023 13:41-0400 Body mass index (BMI) [Ratio] 23.6 kg/m2 MD Elma Cruz Work Phone: [facility] 11-30-2023 13:41-0400 Body temperature 98 [degF] MD Elma Cruz Work Phone: [facility] 11-30-2023 13:41-0400 Body weight 62.59 kg MD Elma Cruz Work Phone: [facility] 11-30-2023 13:41-0400 Diastolic blood pressure 72 mm[Hg] MD Elma Cruz Work Phone: [facility] 11-30-2023 13:41-0400 Heart rate 89 /min MD Elma Cruz Work Phone: [facility] 11-30-2023 13:41-0400 Respiratory rate 18 /min MD Elma Cruz Work Phone: [facility] 11-30-2023 13:41-0400 SaO2% (BldA) [Mass fraction] 95 % MD Elma Cruz Work Phone: [facility] 11-30-2023 13:41-0400 Systolic blood pressure 126 mm[Hg] MD Elma Cruz Work Phone: [facility] 01-16-2023 13:50-0500 Body height 162.56 cm Lesa Mack Other [facility] 01-16-2023 13:50-0500 Body mass index (BMI) [Ratio] 24.13 kg/m2 Lesa Mack Other [facility] Other 01-16-2023 13:50-0500 Body temperature 98 [degF] Lesa Mack Other [facility] Other 01-16-2023 13:50-0500 Body weight 63.78 kg Lesa Mack Other [facility] Other 01-16-2023 13:50-0500 Diastolic blood pressure 69 mm[Hg] Lesa Mack Other [facility] Other 01-16-2023 13:50-0500 Respiratory rate 18 /min Lesa Mack Other [facility] Other 01-16-2023 13:50-0500 SaO2% (BldA) [Mass fraction] 96 % Lesa Mack Other [facility] Other 01-16-2023 13:50-0500 Systolic blood pressure 140 mm[Hg] Lesa Mack Other [facility] Other 12-11-2022 16:00-0500 Body height 162.56 cm Romi Toth Other [facility] Other 12-11-2022 16:00-0500 Body mass index (BMI) [Ratio] 23.86 kg/m2 Romi Toth Other [facility] Other 12-11-2022 16:00-0500 Body temperature 97.6 [degF] Romi Toth Other [facility] Other 12-11-2022 16:00-0500 Body weight 63.05 kg Romi Toth Other [facility] Other 12-11-2022 16:00-0500 Diastolic blood pressure 83 mm[Hg] Romi Toth Other [facility] Other 12-11-2022 16:00-0500 Respiratory rate 18 /min Romi Toth Other [facility] Other 12-11-2022 16:00-0500 SaO2% (BldA) [Mass fraction] 98 % Romi Toth Other [facility] Other 12-11-2022 16:00-0500 Systolic blood pressure 153 mm[Hg] Romi Curryarney Other [facility] Other 10-25-2022 15:50-0400 Body height 162.56 cm Lesa Mack Other [facility] Other 10-25-2022 15:50-0400 Body mass index (BMI) [Ratio] 33.47 kg/m2 Lesa Gonzalezmond Other [facility] Other 10-25-2022 15:50-0400 Body temperature 98.9 [degF] Lesa Gonzalezmond Other [facility] Other 10-25-2022 15:50-0400 Body weight 88.45 kg Lesa Martina Other [facility] Other 10-25-2022 15:50-0400 Diastolic blood pressure 71 mm[Hg] Lesa Martina Other [facility] Other 10-25-2022 15:50-0400 Respiratory rate 18 /min Lesa Martina Other [facility] Other 10-25-2022 15:50-0400 SaO2% (BldA) [Mass fraction] 98 % Lesa Martina Other [facility] Other 10-25-2022 15:50-0400 Systolic blood pressure 151 mm[Hg] Lesa Mack Other [facility] Other 10-01-2022 09:00-0400 Body height 162.56 cm Sharmaine Alfonso Other [facility] Other 10-01-2022 09:00-0400 Body mass index (BMI) [Ratio] 30.86 kg/m2 Sharmaine Alfonso Other [facility] Other 10-01-2022 09:00-0400 Body temperature 98.2 [degF] Sharmaine Alfonso Other [facility] Other 10-01-2022 09:00-0400 Body weight 81.56 kg Sharmaine Alfonso Other [facility] Other 10-01-2022 09:00-0400 Diastolic blood pressure 72 mm[Hg] Sharmaine Alfonso Other [facility] Other 10-01-2022 09:00-0400 Respiratory rate 18 /min Sharmaine Alfonso Other [facility] Other 10-01-2022 09:00-0400 SaO2% (BldA) [Mass fraction] 98 % Sharmaine Alfonso Other [facility] Other 10-01-2022 09:00-0400 Systolic blood pressure 142 mm[Hg] Sharmaine Alfonso Other [facility] Other 05-29-2022 15:45-0400 Body height 162.56 cm Darrius Moreland Other [facility] Other 05-29-2022 15:45-0400 Body mass index (BMI) [Ratio] 34.84 kg/m2 Darrius Merly Other [facility] Other 05-29-2022 15:45-0400 Body weight 92.08 kg Darrius Merly Other [facility] Other 04-05-2022 14:15-0500 Body height 162.56 cm Darrius Merly Other [facility] Other 04-05-2022 14:15-0500 Body mass index (BMI) [Ratio] 24.54 kg/m2 Darrius Merly Other [facility] Other 04-05-2022 14:15-0500 Body weight 64.86 kg Darrius Merly Other [facility] Other 02-10-2022 09:30-0500 Body height 162.56 cm Darrius Merly Other [facility] Other 02-10-2022 09:30-0500 Body mass index (BMI) [Ratio] 24.54 kg/m2 Darrius Merly Other [facility] Other 02-10-2022 09:30-0500 Body weight 64.86 kg Darrius Merly Other [facility] Other 03-09-2021 11:15-0500 Body height 162.56 cm Lesa Mack Other [facility] Other 03-09-2021 11:15-0500 Body mass index (BMI) [Ratio] 23.69 kg/m2 Lesa Mack Other [facility] Other 03-09-2021 11:15-0500 Body temperature 98.1 [degF] Lesa Mack Other [facility] Other 03-09-2021 11:15-0500 Body weight 62.6 kg Lesa Mack Other [facility] Other 03-09-2021 11:15-0500 Respiratory rate 18 /min Lesa Mack Other [facility] Other 03-09-2021 11:15-0500 SaO2% (BldA) [Mass fraction] 98 % Lesa Mack Other [employer] Other Encounters Encounter Date Encounter Type Care Provider Facility Start: 12-22-2023 End: 12-22-2023 ambulatory ELMA CRUZ [facility] Start: 12-07-2023 End: 12-07-2023 ambulatory MD Elma Cruz Work Phone: [facility] Work Phone: Start: 12-07-2023 End: 12-07-2023 Patient encounter procedure MD lEma Cruz Work Phone: [facility] Work Phone: Start: 11-30-2023 End: 11-30-2023 ambulatory MD Elma Cruz Work Phone: [facility] Work Phone: Start: 11-30-2023 End: 11-30-2023 Patient encounter procedure MD Elma Cruz Work Phone: [facility] Work Phone: Start: 09-17-2023 End: 09-17-2023 ambulatory [facility] Cat[facility] Start: 09-03-2023 End: 09-03-2023 ambulatory JESUS Marychuy [facility] Start: 07-23-2023 End: 07-23-2023 ambulatory JESUS Perrin [facility] Start: 07-11-2023 End: 07-11-2023 Evaluation and management of inpatient S[facility]AIL [facility] Start: 07-10-2023 End: 07-11-2023 Evaluation and management of inpatient JESUS Perrin [facility] Start: 07-10-2023 End: 07-10-2023 Evaluation and management of inpatient JESUS Perrin [facility] Start: 06-26-2023 End: 06-28-2023 ambulatory JESUS Marychuy [facility] Start: 06-26-2023 Encounter for other preprocedural examination [facility] Start: 05-31-2023 End: 06-01-[address] [facility] Marychuy [facility] Start: 04-11-2023 End: 04-11-2023 ambulatory BRITT Marychuy S[facility] Not Available Start: 04-09-2023 End: 04-09-2023 ambulatory [place] [facility] Start: 02-07-2023 End: 02-07-2023 ambulatory Darrius Moreland Other [facility] Other Start: 02-07-2023 Office outpatient vi sit 15 minutes Darrius Moreland [facility] Start: 02-03-2023 End: 02-03-2023 Emergency department patient visit [facility] Marychuy [facility] Start: 01-16-2023 End: 01-16-2023 ambulatory Lesa Mack Other [facility] Other Start: 01-16-2023 Office outpatient vi sit 15 minutes Lesa Mack [facility] [place] Start: 12-23-2022 End: 12-24-2022 ambulatory ELMA A [facility] Start: 12-11-2022 End: 12-11-2022 ambulatory Romi Toth Other [facility] Other Start: 12-11-2022 Office outpatient vi sit 25 minutes Romi Curryarney [facility] Start: 10-25-2022 End: 10-25-2022 ambulatory Lesa Gonzalezmond Other [facility] Other Start: 10-25-2022 Office outpatient vi sit 15 minutes Lesa Gonzalezmond [facility] Start: 10-01-2022 End: 10-01-2022 ambulatory Sharmaine Alfonso Other [facility] Other Start: 10-01-2022 Office outpatient vi sit 15 minutes Sharmaine Alfonso [facility] Start: 05-29-2022 End: 05-29-2022 ambulatory MD Elma Cruz Work Phone: [facility] Work Phone: Start: 05-29-2022 End: 05-29-2022 Patient encounter procedure Darrius Moreland [facility] Start: 04-18-2022 End: 04-18-2022 ambulatory Darrius Moreland Other [facility] Start: 04-18-2022 Telephone encounter Darrius Moreland [facility] Start: 04-05-2022 Postop follow up vis it related to original px Darrius Moreland [facility] Start: 04-05-2022 End: 04-05-2022 ambulatory MD Elma Cruz Work Phone: [facility] Work Phone: Start: 04-05-2022 End: 04-05-2022 Patient encounter procedure MD Elma Cruz Work Phone: [facility] Start: 03-08-2022 End: 03-08-2022 ambulatory Darrius Moreland Other [facility] Other Start: 03-08-2022 Postop follow up vis it related to original px Darrius Moreland [facility] Start: 03-08-2022 End: 03-08-2022 Patient encounter procedure MD Elma Cruz Work Phone: [facility] Start: 02-10-2022 End: 02-10-2022 ambulatory Darrius Moreland Other [facility] Other Start: 02-10-2022 FQHC visit new patient Darrius Moreland [facility] Start: 02-07-2022 End: 02-07-[address] ELMA CRUZ Facility:[facility] Start: 03-09-2021 End: 03-09-2021 ambulatory Lesa Mack Other [facility] Other Start: 03-09-2021 Office outpatient vi sit 15 minutes Lesa Mack [facility] Start: 03-15-2020 End: 03-15-2020 Orders Only Hailey Nieves Work Phone: [facility] Start: 10-25-2019 End: 10-25-2019 Subsequent hospital visit by physician Elma Cruz Work Phone: [facility] Comment on above: Visit for screening mammogram Start: 12-27-2018 Patient encounter procedure FRANCESCO [facility] Facility:[facility] Start: 12-11-2018 Patient encounter procedure FRANCESCO [facility] Facility:[facility] Start: 12-02-2018 End: 12-03-2018 Patient encounter procedure [facility]ESCO [facility] Facility:[facility] Start: 08-29-2017 End: 08-29-2017 Patient encounter Elma Cruz Work Phone: [facility] Procedures Date Procedure Procedure Detail Performing Clinician Start: 11-30-2023 Plain chest X-ray MD Dominic Cruz Work Phone: Start: 05-29-2022 X-ray of left knee MD Irene Cruz Work Phone: Start: 05-29-2022 X-ray of right foot MD Elma Cruz Work Phone: Start: 04-05-2022 X-ray of left knee MD Irene Cruz Work Phone: Start: 04-05-2022 X-ray of right foot MD Elma Cruz Work Phone: Start: 03-08-2022 X-ray of left knee MD Irene Cruz Work Phone: Start: 03-08-2022 X-ray of right foot MD Elma Cruz Work Phone: Start: 10-25-2019 Mammography Hailey mays Start: 11-02-2018 Mammography Elma evans Start: 12-13-2015 Colonoscopy Elma evans Plan of Treatment Date Care Activity Detail Author Start: 12-12-2025 Screening for malign ant neoplasm of colon [facility] Start: 10-24-2020 Screening mammography [facility] Start: 11-03-2019 Screening mammography Mamm[facility] Start: 10-07-2019 Influenza vaccinatio n given Sequential Influenza Vaccine (#1) [facility] Start: 10-06-2017 Influenza vaccination SEQUENTI AL INFLUENZA VACCINE (#1) [facility] Start: 09-10-2015 Pneumococcal vaccination PNEUM OCOCCAL VACCINE AGE 65+ (1 of 2 - PCV13) [facility] Start: 2010 Zoster vaccine hzv l aakash for subcutaneous use ZOSTER VACCINE [facility] Start: 2000 Administration of he rpes zoster vaccine Zoster Vaccines (1 of 2) [facility] Start: 2000 Screening for malign ant neoplasm of colon [facility] Start: 1968 Hepatitis C antibody , confirmatory test Hepatitis C Screening [facility] Start: 1966 COVID-19 Vaccine (1 of 2) COVI D-19 Vaccine (1 of 2) [facility] Start: 1962 Adolescent depressio n screening assessment Depression Screening (PHQ9) [facility] Start: 1953 History and physical examination, annual for health maintenance Wellness Visit [facility] Start: 1950 Fall risk assessment Falls Risk Asse ssment [facility] Start: 1950 HEPATITIS C SCREENING HEPATITIS C SC REENING [facility] Start: 1950 Screening colonoscopy [facility]OSCOPY [facility] Start: 1950 End: 1950 Screening for osteoporosis DEXA SCAN [facility] Start: 1950 End: 1950 Tetanus vaccination [facility] End: 10-25-2019 MG Breast - bilateral screening Mammography Screening Amaury Bilateral Imaging Routine Visit for screening mammogram Once for 1 Occurrences starting 10/25/2019 until 10/25/2019 [facility] Comment on above: Once for 1 Occurrenc es starting 10/25/2019 until 10/25/2019 MG Breast - bilatera l screening Mammography Screening Amaury Bilateral Imaging Routine Visit for screening mammogram 10/25/2019 11:54 AM EDT [facility] Patient Education Sinusitis, Adult ED [facility] Work Phone: Payers Date Payer Category Payer Self-pay 2022 Private Health Insurance [id number] [id number] 2015 Medicare MEDICARE MEDICAR E PART A & B [id number] 2015-Present [place] [id number] 1959 Medicare [id number] 1959 Private Health Insurance [facility] [id number] 1950 Unknown [id number] 2.16.840.1.414014.3.579. 2.593 1950 Unknown [id number] 2.16.840.1.116362.3.579. 2.593 1950 Unknown [id number] 2.16.840.1.461763.3.579. 2.593 1950 Unknown [id number] 2.16.840.1.810114.3.579. 2.593 1950 Unknown [id number] 2.16.840.1.697653.3.579. 2.900 1950 Unknown [id number] 2.16.840.1.100152.3.579. 2.1259 1950 Unknown [id number] 2.16.840.1.993593.3.579. 2.1286 1950 Unknown [id number] 2.16.840.1.901684.3.579. 2.1285 1950 Unknown [id number] 2.16.840.1.281840.3.579. 2.1285 1950 Unknown [id number] 2.16.840.1.290553.3.579. 2.1285 1950 Unknown [id number] 2.16.840.1.829980.3.579. 2.1285 1950 Unknown [id number] 2.16.840.1.965386.3.579. 2.1285 1950 Unknown [id number] 2.16.840.1.652460.3.579. 2.1285 1950 Unknown [id number] 2.16.840.1.566401.3.579. 2.1285 1950 Unknown [id number] 2.16.840.1.843289.3.579. 2.1285 1950 Unknown [id number] 2.16.840.1.575015.3.579. 2.1285 1950 Unknown [id number] 2.16.840.1.460801.3.579. 2.1285 1950 Unknown [id number] 2.16.840.1.850373.3.579. 2.1285 1950 Unknown [id number] 2.16.840.1.488839.3.579. 2.1285 1950 Unknown [id number] 2.16.840.1.099004.3.579. 2.903 Unknown Regular Insurance [id number] Unknown [id number] 2.16.840.1.090770.3.579. 2.531 Social History Date Type Detail Facility Start: 08-29-2017 End: 11-02-2018 Tobacco smoking status NHIS Unknown if ever smoked [facility] Sex Assigned At Not [facility] Exposure to SARS-CoV-2 (event) Not sure [facility] Sex Assigned At Sex Assigned At Bir th [facility] Start: 1950 Sex Assigned At Female F [facility] Clinical Notes 03-09-2021 to 02-07-2023 Note Date & Type Note Facility 02-07-2023 Evaluation note Encounter Date Diagnosis Assessment Notes Feb, Contusion of left foot, initial encounter (ICD-10 - S90.32XA) Chacho presents with left foot contusion. At this juncture we have discussed the findings and diagnosis as well as personally reviewed appropriate imaging and performed interpretation of related testing and examination with the patient in office today. Prior medical notes from the [facility] and history have been reviewed. At this [...] as documented in the electronic medical record. [facility] 12-12-2023 Evaluation note* Encounter Date Diagnosis [...] no improvement in 2 to 3 days [facility] 11-06-2023 Evaluation note* Encounter Date Diagnosis [...] or worsen. All questions and concerns addressed. [facility] 09-20-2023 Evaluation note* Encounter Date Diagnosis [...] no improvement in 2 to 3 days [facility] 08-27-2023 Evaluation note* Encounter Date Diagnosis [...] days. Patient verbalized understanding of treatment plan. [facility] 04-24-2023 Evaluation note* Encounter Date Diagnosis [...] M79.672) Patient given order for physical therapy [facility] 03-01-2023 Evaluation note* Encounter Date Diagnosis [...] of right lower extremity (ICD-10 - M76.821) [facility] 02-01-2023 Evaluation note* Encounter Date Diagnosis [...] move forward with treatment at this time. [facility] 01-06-2023 Evaluation note* Encounter Date Diagnosis [...] as documented in the electronic medical record. [facility] 01-03-2023 NotePROCEDURE: XR KNEE LT 4V [...] Electronically authenticated by: JEREMIAH KOHLER Date: 2022-02-07 14:08[facility]01-03-2023 NotePROCEDURE: XR ANKLE RT MIN 3 [...] Electronically authenticated by: JEREMIAH KOHLER Date: 2022-02-07 14:05[facility]01-03-2023 NotePROCEDURE: XR ANKLE RT MIN 3 [...] Electronically authenticated by: JEREMIAH KOHLER Date: 2022-02-07 14:05[facility]02-02-2022 Evaluation note* Encounter Date Diagnosis Assessment [...] Patient care instructions given in writting by [facility] document. [employer] Other Evaluation noteNo assessment information available [facility] Work Phone: Evaluation noteNo [facility] Other Evaluation note* Diagnosis Onset Date Resolution Status Acute bacterial sinusitis no neactive Respiratory infection noneac tive Cough acute [facility] Work Phone: History general Narrative - Reported* Type Description Date Surgical History left breast biopsy Surgical History left hip reservicing Surgical History tubal ligation Hospitalization History see above [facility] Other Hisqwzo general Narrative - Reported* Type Description Date Medical History left proximal tibia fracture and right 5th metatarsal fracture Surgical History left breast biopsy Surgical History left hip reservicing Surgical History tubal ligation Surgical History Foot Surgery left Hospitalization History see above [facility] Other Assessments Diagnosis Visit for screening mammogra m Diagnosis Visit for screening mammogram Summary Purpose Family History No Family History Records Found Relationship Condition Age at Onset Recorded Date/T kole father Unknown mother Unknown Advance Directives No Advanced Directives Records FoundDocuments on File Type Date Recorded 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 Advance Directives and Livin g Will 10/25/2019 10:51 AM Documents on File Type Date Recorded 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192D S92.351D Chief Complaint S82.192D S92.351D S82.192D S92.351D Chief Complaint Cough, Congestion R05.9 - Cough, unspecified Chief Complaint Cough, Congestion R05.9 - Cough, unspecified Cough, congestion, seen last Sunday Reason for Visit Acute bacterial sinu sitis Respiratory infection Cough Additional Source Comments INFORMATION SOURCE (unrecogn ized section and content) DATE CREATED AUTHOR 11/05/2018 [facility] DATE CREATED AUTHOR AUTHOR'S ORGANIZ ATION 12/11/2018 [facility] DATE CREATED AUTHOR AUTHOR'S ORGANIZ ATION 02/07/2022 [facility] DATE CREATED AUTHOR AUTHOR'S ORGANIZ ATION 01/02/2023 [facility] DATE CREATED AUTHOR AUTHOR'S ORGANIZ ATION 04/12/2023 [facility] DATE CREATED AUTHOR AUTHOR'S ORGANIZ ATION 06/02/2023 [facility] DATE CREATED AUTHOR AUTHOR'S ORGANIZ ATION 09/04/2023 [facility] DATE CREATED AUTHOR AUTHOR'S ORGANIZ ATION 09/18/2023 [facility] DATE CREATED AUTHOR AUTHOR'S ORGANIZ ATION 12/08/2023 [facility] DATE CREATED AUTHOR AUTHOR'S ORGANIZ ATION 12/31/2023 [facility] Reason for Visit (unrecogniz ed section and content) Status Reason Specialty Diagnoses / Procedures Referred By Contact Referred To Contact Pending Review Radiology Diagnoses Visit for screening mammogram Procedures Mammography Screening Amaury Bilateral Elma Cruz MD [address] [place] [address] Care Teams (unrecognized sec tion and content) Team Status: Active Member Role Status Dates Elma Perrin Cruz , MD Primary Care Provider Active Team Status: Inactive Member Role Status Dates Elma Cruz MD Primary Care Provider Active Darrius Moreland DO Attending Provider Active Team Status: Inactive Member Role Status Kiara Cruz MD Primary Care Provider Active Start: November 30, 2023 End: November 30, 2023 Lazara Curran APRN Attending Provider Active Sta rt: November 30, 2023 End: November 30, 2023 Team Status: Active Member Role Status Kiara Cruz MD Primary Care Provider Active Start: November 30, 2023 Lazara Curran APRN Attending Provider Active Sta rt: November 30, 2023 Team Status: Inactive Member Role Status Kiara Cruz MD Primary Care Provider Active Start: [...] BE BASED ON THE PRIMARY CLINICAL RECORDS. [facility]. provides no warranty or guarantee of the accuracy or completeness of information in this document.
--- NOTE | 2024-03-27 10:24 | ED_ITS ---
HPI HPI - General Adult General Chief complaint: Arrhythmia/Palpitations Stated complaint: SENT BY URGENT CARE STATED SHE HAS A FIB Time Seen by Provider: 03/27/24 10:18 Source: patient Mode of arrival: walk-in History of Present Illness HPI narrative: Patient states she has had a sore throat for about a week in the last 3 to 4 days has not felt well. She has had some palpitations in the last 2 or 3 days. She presented to an urgent care center this morning and was told that she had tested positive for influenza and was in atrial fibrillation. She was directed to the emergency department. She is on no medications at home and lives alone. She denies alcohol or tobacco use. Related Data Home Medications ?Medication ?Instructions ?Recorded ?Confirmed acyclovir 400 mg tablet 400 mg PO DAILY PRN viral 03/27/24 03/27/24 albuterol sulfate 90 mcg/actuation 2 puff inhalation Q4H PRN 03/27/24 03/27/24 aerosol inhaler shortness of breath or wheezing naproxen 500 mg tablet 500 mg PO BID PRN pain 03/27/24 03/27/24 Previous Rx's ?Medication ?Instructions ?Recorded apixaban 5 mg tablet (Eliquis) 5 mg PO BID #60 tabs 03/27/24 metoprolol succinate 25 mg 25 mg PO DAILY #30 tabs 03/27/24 tablet,extended release 24 hr (Toprol XL) oseltamivir 75 mg capsule (Tamiflu) 75 mg PO BID 5 days #10 caps 03/27/24 Allergies Allergy/AdvReac Type Severity Reaction Status Date / Time No Known Drug Allergies Allergy Verified 02/04/23 09:48 Opioid HPI Opioid Management Most Recent Opioid Data: No Data to Display PFSH PFS Social History Smoking status: Never smoker Little interest or pleasure in doing things: not at all Feeling down, depressed, or hopeless: not at all Exam Narrative Exam Narrative: Alert and nondistressed. HEENT exam is normal to inspection. Neck is supple. Lung sounds are grossly clear to auscultation bilaterally. Heart has an irregular rhythm with a slightly rapid rate. Abdomen is soft nontender. She moves all extremities actively. She does not have pedal edema or calf tenderness. Speech and mentation are clear and intact. There is no facial asymmetry. She moves all extremities actively. Constitutional Vital Signs, click to edit/add: Last Vital Signs Temp 97.9 F 03/27/24 10:10 Pulse 103 H 03/27/24 12:30 Resp 27 H 03/27/24 12:30 BP 151/81 H 03/27/24 12:30 Pulse Ox 97 03/27/24 12:20 O2 Del Method Room Air 03/27/24 10:10 Course Vital Signs Vital signs: Vital Signs Temperature 97.9 F 03/27/24 10:10 Pulse Rate 117 H 03/27/24 10:10 Respiratory Rate 18 03/27/24 10:10 Blood Pressure 159/89 H 03/27/24 10:10 Pulse Oximetry 98 03/27/24 10:10 Oxygen Delivery Method Room Air 03/27/24 10:10 Temperature 97.9 F 03/27/24 10:10 Pulse Rate 103 H 03/27/24 12:30 Respiratory Rate 27 H 03/27/24 12:30 Blood Pressure 151/81 H 03/27/24 12:30 Pulse Oximetry 97 03/27/24 12:20 Oxygen Delivery Method Room Air 03/27/24 10:10 Medical Decision Making MDM Narrative Medical decision making narrative: EKG is interpreted by me and shows atrial flutter with heart rate of 87 beats a minute. The axis is normal. There is no acute ST elevation. ST depressions are seen inferolaterally. Patient has a white count of 4.6 and a hemoglobin of 14.7. BMP is normal except for a low potassium of 3.6 which is replenished. Cardiac biomarkers are not di agnostically elevated. Findings were discussed with Dr. Tobar on-call for cardiology and the plan is to place her on Toprol and Eliquis. Initial doses were given in the ED. She is also started on Tamiflu and is to follow-up with cardiology in 1 week's time. Patient is to return anytime for worsening symptoms. Lab Data Labs: Lab Results 03/27/24 Range/Units 10:20 WBC 4.6 (4.0-11.0) 10^3/uL RBC 4.74 (4.20-5.40) 10^6/uL Hgb 14.7 (12.0-16.0) g/dL Hct 43.9 (36.0-48.0) % MCV 92.6 (81.0-99.0) fL MCH 31.0 (26.7-34.0) pg MCHC 33.5 (29.9-35.2) g/dL RDW 13.1 (11.0-15.0) % Plt Count 158 (150-450) 10^3/uL MPV 10.1 (9.5-13.5) fL Seg Neuts % (Manual) 54.0 (43.0-75.0) Lymphocytes % (Manual) 22.0 (20.5-60.0) % Atypical Lymphs % (Man) 10.0 % Monocytes % (Manual) 13.0 H (1.7-12.0) % Eosinophils % (Manual) 0.0 L (0.9-7.0) % Basophils % (Manual) 1.0 (0.2-2.0) % Neutrophils # (Manual) 2.48 (1.4-6.5) 10^3/uL Lymphocytes # (Manual) 1.01 L (1.20-3.80) 10^3/uL Abs Atypical Lymphs Man 0.46 Monocytes # (Manual) 0.59 (0.30-0.80) 10^3/uL Eosinophils # (Manual) 0.00 (0.00-0.70) 10^3/uL Basophils # (Manual) 0.04 (0.00-0.10) 10^3/uL PT 10.4 (9.0-11.6) sec INR 0.98 APTT 28.1 (22.3-36.2) sec D-Dimer 0.39 (<=0.59) mg/L FEU Sodium 143 (136-145) mmol/L Potassium 3.3 L (3.5-5.1) mmol/L Chloride 105 (98-107) mmol/L Carbon Dioxide 28.6 (21.0-32.0) mmol/L Anion Gap 12.7 BUN 10.0 (7.0-18.0) mg/dL Creatinine 0.86 (0.55-1.02) mg/dL Est GFR ( Amer) >60 (>=60 mL/min/1.73m^2) Est GFR (Non-Af Amer) >60 (>=60 mL/min/1.73m^2) BUN/Creatinine Ratio 11.6 Glucose 110 H (74-106) mg/dL Calcium 9.8 (8.5-10.1) mg/dL Magnesium 1.8 (1.8-2.4) mg/dL Total Bilirubin 0.4 (0.2-1.0) mg/dL AST 37 (15-37) U/L ALT 28 (14-59) U/L Alkaline Phosphatase 100 (46-116) U/L Troponin I High Sens 9.9 (4.0-51.3) pg/mL NT-Pro-B Natriuret Pep 1076.0 H (<=900.0) pg/mL Total Protein 7.1 (6.4-8.2) g/dL Albumin 3.7 (3.4-5.0) g/dL Globulin 3.4 g/dL Albumin/Globulin Ratio 1.1 TSH & Free T4 Interp 1.986 (0.358-3.740) uIU/mL Discharge Plan Discharge Chief Complaint: Arrhythmia/Palpitations Clinical Impression: Influenza A Atrial flutter Qualifiers: Atrial flutter type: typical Qualified Code(s): I48.3 - Typical atrial flutter Patient Disposition: Home, Self-Care Time of Disposition Decision: 13:20 Condition: Good Mode of Transportation: Private Vehicle Prescriptions / Home Meds: New metoprolol succinate [Toprol XL] 25 mg tablet extended release 24 hr 25 mg PO DAILY Qty: 30 0RF Eliquis 5 mg tablet 5 mg PO BID Qty: 60 0RF oseltamivir [Tamiflu] 75 mg capsule 75 mg PO BID 5 Days Qty: 10 0RF No Action acyclovir 400 mg tablet 400 mg PO DAILY PRN (Reason: viral) albuterol sulfate 90 mcg/actuation HFA aerosol inhaler 2 puff INHALATION Q4H PRN (Reason: shortness of breath or wheezing) naproxen 500 mg tablet 500 mg PO BID PRN (Reason: pain) Print Language: Kinyarwanda Instructions: Metoprolol (By mouth) (Lopressor, Toprol XL), Oseltamivir (By mouth) (Tamiflu), Apixaban (By mouth) (Eliquis), Atrial Flutter (ED), Influenza (ED) Additional Instructions: Stop taking naproxen. Do not take aspirin or ibuprofen since you are already on a blood thinner. Call [phone] to schedule appointment with engineering agent Dr Abraham Tobar in one week. Medications as prescribed. Return for worsening symptoms. Referrals: ELMA DANIELSON [Primary Care Provider] - 1 week Discharge Date/Time: 03/27/24 13:51
--- NOTE | 2024-03-27 10:26 | ECG_ITS ---
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
[2024-03-27 10:35] LABS: Hematocrit 43.9 % (36.0-48.0); Hemoglobin 14.7 g/dL (12.0-16.0); Mean Corpuscular HGB Conc 33.5 g/dL (29.9-35.2); Mean Corpuscular Volume 92.6 fL (81.0-99.0); Mean Platelet Volume 10.1 fL (9.5-13.5); Platelet Count 158 10^3/uL (150-450); Red Blood Count 4.74 10^6/uL (4.20-5.40); Red Cell Distribution Width 13.1 % (11.0-15.0); White Blood Count 4.6 10^3/uL (4.0-11.0)
[2024-03-27] MEDS: 0.9 % SODIUM CHLORIDE 1,000 ML 1000 ML IV (10:39)
[2024-03-27 10:52] LABS: D Dimer 0.39 mg/L FEU (<=0.59); INR 0.98; Partial Thromboplastin Time 28.1 sec (22.3-36.2); Prothrombin Time 10.4 sec (9.0-11.6)
[2024-03-27 11:00] LABS: Atypical Lymphocytes Abs Man 0.46; Basophils Abs Manual 0.04 10^3/uL (0.00-0.10); Lymphocytes Absolute Manual 1.01 10^3/uL (1.20-3.80); Monocytes Absolute Manual 0.59 10^3/uL (0.30-0.80); Segmented Neut Absolute Manual 2.48 10^3/uL (1.4-6.5)
[2024-03-27 11:01] LABS: Alanine Aminotransferase 28 U/L (14-59); Albumin Globulin Ratio 1.1; Albumin Level 3.7 g/dL (3.4-5.0); Alkaline Phosphatase 100 U/L (46-116); Anion Gap 12.7; Aspartate Amino Transferase 37 U/L (15-37); BUN Creatinine Ratio 11.6; Bilirubin Total 0.4 mg/dL (0.2-1.0); Calcium 9.8 mg/dL (8.5-10.1); Carbon Dioxide 28.6 mmol/L (21.0-32.0); Chloride 105 mmol/L (98-107); Estimated GFR (African America >60 (>=60 mL/min/1.73m^2); Estimated GFR (Non-African Ame >60 (>=60 mL/min/1.73m^2); Globulin 3.4 g/dL; Glucose 110 mg/dL (74-106); Potassium 3.3 mmol/L (3.5-5.1); Sodium 143 mmol/L (136-145); Total Protein 7.1 g/dL (6.4-8.2)
[2024-03-27 11:03] LABS: Magnesium 1.8 mg/dL (1.8-2.4); Troponin I High Sensitivity 9.9 pg/mL (4.0-51.3)
[2024-03-27 11:12] LABS: TSH W/ REFLEX FT4 1.986 uIU/mL (0.358-3.740)
[2024-03-27] MEDS: POTASSIUM BICARBONATE/CIT 25 MEQ TABLET EFF 50 MEQ PO (11:32)
--- NOTE | 2024-03-27 13:18 | ECG_ITS ---
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
[2024-03-27] MEDS: METOPROLOL SUCCINATE 25 MG TAB.ER.24H PO (13:43)
[2024-03-27] MEDS: APIXABAN 5 MG TABLET PO (13:43)
== END 2024-03-27 13:51 | disposition home or self-care (01) ==
PROVIDERS: Emergency Provider Emergency Medicine; PCP Family Medicine
DX: J10.1 Influenza due to other identified influenza virus with other respiratory manifestations (principal); I48.3 Typical atrial flutter; R00.2 Palpitations; Z79.01 Long term (current) use of anticoagulants
CPT/HCPCS: 36415; 71045; 80053; 83735; 83880; 84443; 84484; 85007; 85027; 85378; 85610; 85730; 93005; 99285